=== PATIENT | male | born 1950 | race Caucasian/White ===

== ENCOUNTER 2016-04-25 05:38 | Day surgery (SDC) | payer OTHER, BC ==
[2016-04-19 15:04] VITALS: BMI 29.7
[2016-04-25 06:02] VITALS: TEMP 98.6
[2016-04-25] MEDS ORDERED: KETAMINE HCL 500 MG/10 ML VIAL ONE (06:55)
[2016-04-25 08:21] VITALS: BP 141/71; PULSE 73
[2016-04-25] MEDS ORDERED: LACTATED RINGERS SOLUTION 1,000 ML IV SCH (08:45)
== END 2016-04-25 08:50 | disposition home or self-care (01) ==
LOC: FECT 05:38
PROVIDERS: ATTEND Psychiatry & Neurology Psychiatry
PROC: GZB4ZZZ Other Electroconvulsive Therapy (ICD-10-PCS; principal; 2016-04-25 08:15)
DX: F33.2 Major depressive disorder, recurrent severe without psychotic features (principal)
CPT/HCPCS: 90870; 94760

== ENCOUNTER 2016-04-26 05:40 | Day surgery (SDC) | payer OTHER, BC ==
[2016-04-21 10:50] VITALS: BMI 29.7
[2016-04-26] MEDS ORDERED: KETAMINE HCL 500 MG/10 ML VIAL ONE (07:48)
[2016-04-26 08:54] VITALS: TEMP 98.3
[2016-04-26 09:20] VITALS: BP 142/64; PULSE 68
[2016-04-26] MEDS ORDERED: ONDANSETRON 4 MG/2 ML VIAL IVPUSH PRN (10:57)
[2016-04-26] MEDS ORDERED: LACTATED RINGERS SOLUTION 1,000 ML IV SCH (11:00)
== END 2016-04-26 09:20 | disposition home or self-care (01) ==
LOC: FECT 05:40
PROVIDERS: ATTEND Psychiatry & Neurology Psychiatry
PROC: GZB4ZZZ Other Electroconvulsive Therapy (ICD-10-PCS; principal; 2016-04-26 07:45)
DX: F33.2 Major depressive disorder, recurrent severe without psychotic features (principal)
CPT/HCPCS: 90870; 94760

== ENCOUNTER 2016-04-28 05:43 | Day surgery (SDC) | payer OTHER, BC ==
[2016-04-21 10:55] VITALS: BMI 29.7
[2016-04-28] MEDS ORDERED: ONDANSETRON 4 MG/2 ML VIAL IVPUSH PRN (06:20)
[2016-04-28] MEDS ORDERED: LACTATED RINGERS SOLUTION 1,000 ML IV SCH (06:30)
[2016-04-28] MEDS ORDERED: KETAMINE HCL 500 MG/10 ML VIAL ONE (07:19)
[2016-04-28 08:33] VITALS: TEMP 97.8
[2016-04-28 09:06] VITALS: BP 128/78; PULSE 56
== END 2016-04-28 08:50 | disposition home or self-care (01) ==
LOC: FECT 05:43
PROVIDERS: ATTEND Psychiatry & Neurology Psychiatry
PROC: GZB4ZZZ Other Electroconvulsive Therapy (ICD-10-PCS; principal; 2016-04-28 07:30)
DX: F33.2 Major depressive disorder, recurrent severe without psychotic features (principal)
CPT/HCPCS: 90870; 94760

== ENCOUNTER 2016-05-02 05:41 | Day surgery (SDC) | payer OTHER, BC ==
[2016-04-25 13:07] VITALS: BMI 29.7
[2016-05-02] MEDS ORDERED: KETAMINE HCL 500 MG/10 ML VIAL ONE (06:57)
[2016-05-02 07:35] VITALS: TEMP 97.9
[2016-05-02 09:18] VITALS: BP 126/72; PULSE 59
== END 2016-05-02 09:20 | disposition home or self-care (01) ==
LOC: FECT 05:41
PROVIDERS: ATTEND Psychiatry & Neurology Psychiatry
PROC: GZB4ZZZ Other Electroconvulsive Therapy (ICD-10-PCS; principal; 2016-05-02 07:30)
DX: F33.2 Major depressive disorder, recurrent severe without psychotic features (principal)
CPT/HCPCS: 90870; 94760

== ENCOUNTER 2016-05-03 05:40 | Day surgery (SDC) | payer OTHER, BC ==
[2016-04-26 14:49] VITALS: BMI 29.7
[2016-05-03 06:37] VITALS: TEMP 98.2
[2016-05-03] MEDS ORDERED: KETAMINE HCL 500 MG/10 ML VIAL ONE (07:27)
[2016-05-03] MEDS ORDERED: MIDAZOLAM HCL 2 MG/2 ML SINGLE DOSE VIAL IVPUSH PRN (07:52)
[2016-05-03] MEDS ORDERED: LACTATED RINGERS SOLUTION 1,000 ML IV SCH (08:00)
[2016-05-03 09:52] VITALS: BP 135/84; PULSE 61
== END 2016-05-03 09:10 | disposition home or self-care (01) ==
LOC: FECT 05:40
PROVIDERS: ATTEND Psychiatry & Neurology Psychiatry
PROC: GZB4ZZZ Other Electroconvulsive Therapy (ICD-10-PCS; principal; 2016-05-03 07:30)
DX: F33.2 Major depressive disorder, recurrent severe without psychotic features (principal)
CPT/HCPCS: 90870; 94760

== ENCOUNTER 2016-05-05 05:37 | Day surgery (SDC) | payer OTHER, BC ==
[2016-04-28 10:42] VITALS: BMI 29.7
[2016-05-05] MEDS ORDERED: KETAMINE HCL 500 MG/10 ML VIAL ONE (07:56)
[2016-05-05 09:46] VITALS: TEMP 98.4
[2016-05-05 09:49] VITALS: BP 141/82; PULSE 61
== END 2016-05-05 09:35 | disposition home or self-care (01) ==
LOC: FECT 05:37
PROVIDERS: ATTEND Psychiatry & Neurology Psychiatry
PROC: GZB4ZZZ Other Electroconvulsive Therapy (ICD-10-PCS; principal; 2016-05-05 07:15)
DX: F33.2 Major depressive disorder, recurrent severe without psychotic features (principal)
CPT/HCPCS: 90870; 94760

== ENCOUNTER 2016-05-08 05:41 | Day surgery (SDC) | payer OTHER, BC ==
[2016-05-01 07:52] VITALS: BMI 29.7
[2016-05-08] MEDS ORDERED: KETAMINE HCL 500 MG/10 ML VIAL ONE (07:35)
[2016-05-08] MEDS ORDERED: ACETAMINOPHEN 325 MG TABLET (FP) PO PRN (09:18)
[2016-05-08 09:28] VITALS: TEMP 98.5
[2016-05-08 10:04] VITALS: BP 140/82; PULSE 58
== END 2016-05-08 10:09 | disposition home or self-care (01) ==
LOC: FECT 05:41
PROVIDERS: ATTEND Psychiatry & Neurology Psychiatry
PROC: GZB4ZZZ Other Electroconvulsive Therapy (ICD-10-PCS; principal; 2016-05-08 07:15)
DX: F33.2 Major depressive disorder, recurrent severe without psychotic features (principal)
CPT/HCPCS: 90870; 94760

== ENCOUNTER 2016-05-10 05:08 | Day surgery (SDC) | payer OTHER, BC ==
[2016-05-04 07:58] VITALS: BMI 29.7
[2016-05-10] MEDS ORDERED: KETAMINE HCL 500 MG/10 ML VIAL ONE (08:23)
[2016-05-10] MEDS ORDERED: LACTATED RINGERS SOLUTION 1,000 ML IV SCH (08:45)
[2016-05-10 10:06] VITALS: TEMP 99
[2016-05-10 10:08] VITALS: BP 141/81; PULSE 55
== END 2016-05-10 10:00 | disposition home or self-care (01) ==
LOC: FECT 05:08
PROVIDERS: ATTEND Psychiatry & Neurology Psychiatry
PROC: GZB4ZZZ Other Electroconvulsive Therapy (ICD-10-PCS; principal; 2016-05-10 07:00)
DX: F33.2 Major depressive disorder, recurrent severe without psychotic features (principal)
CPT/HCPCS: 90870; 94760

== ENCOUNTER 2016-05-12 05:36 | Day surgery (SDC) | payer OTHER, BC ==
[2016-05-08 15:16] VITALS: BMI 29.7
[~2016-05-12 05:36] MED LIST: LACTATED RINGERS SOLUTION 1,000 ML IV SCH
[2016-05-12] MEDS ORDERED: KETAMINE HCL 500 MG/10 ML VIAL ONE (07:06)
[2016-05-12 10:03] VITALS: TEMP 98.1
[2016-05-12 10:12] VITALS: BP 151/73; PULSE 71
[2016-05-12] MEDS ORDERED: LACTATED RINGERS SOLUTION 1,000 ML IV SCH (12:15)
[2016-05-12] MEDS ORDERED: ONDANSETRON 4 MG/2 ML VIAL IVPUSH PRN (13:04)
== END 2016-05-12 09:40 | disposition home or self-care (01) ==
LOC: FECT 05:36
PROVIDERS: ATTEND Psychiatry & Neurology Psychiatry
PROC: GZB4ZZZ Other Electroconvulsive Therapy (ICD-10-PCS; principal; 2016-05-12 07:00)
DX: F33.2 Major depressive disorder, recurrent severe without psychotic features (principal)
CPT/HCPCS: 90870; 94760

== ENCOUNTER 2016-05-15 05:32 | Day surgery (SDC) | payer OTHER, BC ==
[2016-05-08 16:19] VITALS: BMI 29.7
[2016-05-15 06:40] VITALS: PULSE 54
--- NOTE | 2016-05-15 07:05 | HP ---
Admitting History and Physical - Admission History of Present Illness: patient is a 66 y/o male with a past medical history of bipolar disorder, hypertension, and [place] (stent x2). Patient presents for ECT, his last ECT was . Patient reports ongoing depression, he reports slowely tapering off his cymbalta as per his psychiatrist. Patient reports ongoing feelings of depression and increased sleeping throughout the day. Patient denies any suicidal or homicidal ideation, visual or auditory hallucination. patient denies any recent hospitalizations or illness. History Source: Patient Limitations to Obtaining History: No Limitations - Past Medical History Cardiovascular: Yes: HTN, [place] Psych: Yes: Anxiety, Bipolar, Depression - Smoking History Smoking history: Never smoked Have you smoked in the past 12 months: No - Alcohol/Substance Use Hx Alcohol Use: No - Social History Usual Living Arrangement: Yes: With Spouse ADL: Independent History of Recent Travel: No Home Medications - Allergies Allergies/Adverse Reactions: Allergies Allergy/AdvReac Type Severity Reaction Status Date / Time Penicillins Allergy Severe Hives Verified 05/08/16 15:28 - Home Medications Home Medications: Ambulatory Orders Aspirin [ASA -] 81 mg PO HS 04/13/16 Ca Comb No.1/D3/B6/FA/B12/Aloe [Vitamin D3-Aloe 1,000 Unit Tab] 1 each PO HS Clonazepam [Klonopin -] 0.5 mg PO QID PRN 04/13/16 Doxazosin Mesylate [Cardura Xl] 8 mg PO HS 04/13/16 Duloxetine HCl [Cymbalta -] 60 mg PO DAILY 04/13/16 Lamotrigine [Lamictal] 200 mg PO HS 04/13/16 Quetiapine Fumarate [Seroquel -] 200 mg PO HS 04/13/16 Atorvastatin Ca [Lipitor] 80 mg PO HS 04/21/16 Family Disease History - Family Disease History Family History: Unremarkable Review of Systems - Review of Systems Constitutional: reports: No Symptoms Eyes: reports: No Symptoms HENT: reports: No Symptoms Neck: reports: No Symptoms Cardiovascular: reports: No Symptoms Respiratory: reports: No Symptoms Gastrointestinal: reports: No Symptoms Genitourinary: reports: No Symptoms Musculoskeletal: reports: No Symptoms Integumentary: reports: No Symptoms Neurological: reports: No Symptoms Endocrine: reports: No Symptoms Psychiatric: reports: Depression Physical Examination Vital Signs: Vital Signs Temperature 98.5 F 05/15/16 06:38 Pulse Rate 54 L 05/15/16 06:38 Respiratory Rate 16 05/15/16 06:38 Blood Pressure 134/74 05/15/16 06:38 O2 Sat by Pulse Oximetry (%) 97 05/15/16 06:38 Constitutional: Yes: Well Nourished, No Distress, Calm Eyes: Yes: WNL, Conjunctiva Clear, EOM Intact HENT: Yes: WNL, Atraumatic, Normocephalic Neck: Yes: WNL, Supple, Trachea Midline Cardiovascular: Yes: WNL, Regular Rate and Rhythm, S1, S2 Respiratory: Yes: WNL, Regular, CTA Bilaterally Gastrointestinal: Yes: WNL, Normal Bowel Sounds, Soft ...Rectal Exam: Yes: Deferred Renal/: Yes: WNL Musculoskeletal: Yes: WNL Extremities: Yes: WNL Edema: No Peripheral Pulses WNL: Yes Peripheral Pulses: Left Radial: 4+, Right Radial: 4+, Left Doralis Pedis: 3+, Right Dorsalis Pedis: 3+, Left Femoral: 3+, Right Femoral: 3+ Integumentary: Yes: WNL Neurological: Yes: WNL, Alert, Oriented ...Motor Strength: WNL Psychiatric: Yes: WNL, Alert, Oriented Labs: reviewed 04/07 Imaging - Results EKG: Report Reviewed, Image Reviewed, Other (sinus bradycardia, no ischemic changes) Assessment/Plan pt is a 66 y/o that presents for ECT, pt has received ECT in the past and denies any adverse reaction to anesthesia, labs and ekg reviewed, no signs of fluid overload noted on exam low risk for ect informed consent and risks/benefits to be obtained by Dr Ivory
[2016-05-15] MEDS ORDERED: KETAMINE HCL 500 MG/10 ML VIAL ONE (08:10)
[2016-05-15] MEDS ORDERED: LACTATED RINGERS SOLUTION 1,000 ML IV SCH (08:15)
[2016-05-15 09:15] VITALS: BP 158/81; TEMP 98.6
== END 2016-05-15 09:05 | disposition home or self-care (01) ==
LOC: FECT 05:32
PROVIDERS: ATTEND Psychiatry & Neurology Psychiatry
PROC: GZB4ZZZ Other Electroconvulsive Therapy (ICD-10-PCS; principal; 2016-05-15 07:00)
DX: F33.2 Major depressive disorder, recurrent severe without psychotic features (principal)
CPT/HCPCS: 90870; 94760

== ENCOUNTER 2016-05-17 05:38 | Day surgery (SDC) | payer OTHER ==
[2016-05-15 08:52] VITALS: BMI 29.7
[2016-05-17 06:53] VITALS: TEMP 98
[2016-05-17] MEDS ORDERED: KETAMINE HCL 500 MG/10 ML VIAL ONE (07:24)
[2016-05-17] MEDS ORDERED: LACTATED RINGERS SOLUTION 1,000 ML IV SCH (08:00)
[2016-05-17 09:17] VITALS: BP 140/77; PULSE 58
== END 2016-05-17 09:15 | disposition home or self-care (01) ==
LOC: FECT 05:38
PROVIDERS: ATTEND Psychiatry & Neurology Psychiatry
PROC: GZB4ZZZ Other Electroconvulsive Therapy (ICD-10-PCS; principal; 2016-05-17 07:45)
DX: F33.2 Major depressive disorder, recurrent severe without psychotic features (principal)
CPT/HCPCS: 90870; 94760

== ENCOUNTER 2016-05-19 05:39 | Day surgery (SDC) | payer OTHER ==
[2016-05-16 11:32] VITALS: BMI 29.7
[2016-05-19 06:30] VITALS: TEMP 98.3
[2016-05-19] MEDS ORDERED: KETAMINE HCL 500 MG/10 ML VIAL ONE (08:08)
[2016-05-19 09:30] VITALS: BP 140/78; PULSE 60
== END 2016-05-19 09:10 | disposition home or self-care (01) ==
LOC: FECT 05:39
PROVIDERS: ATTEND Psychiatry & Neurology Psychiatry
PROC: GZB4ZZZ Other Electroconvulsive Therapy (ICD-10-PCS; principal; 2016-05-19 07:30)
DX: F33.2 Major depressive disorder, recurrent severe without psychotic features (principal)
CPT/HCPCS: 90870; 94760

== ENCOUNTER 2016-05-22 05:38 | Day surgery (SDC) | payer OTHER ==
[2016-05-16 11:38] VITALS: BMI 29.7
[2016-05-22 06:27] VITALS: TEMP 98.1
[2016-05-22] MEDS ORDERED: KETAMINE HCL 500 MG/10 ML VIAL ONE (07:13)
[2016-05-22 08:35] VITALS: BP 135/75; PULSE 58
== END 2016-05-22 09:00 | disposition home or self-care (01) ==
LOC: FECT 05:38
PROVIDERS: ATTEND Psychiatry & Neurology Psychiatry
PROC: GZB4ZZZ Other Electroconvulsive Therapy (ICD-10-PCS; principal; 2016-05-22 07:30)
DX: F33.2 Major depressive disorder, recurrent severe without psychotic features (principal)
CPT/HCPCS: 90870; 94760

== ENCOUNTER 2016-05-24 05:39 | Day surgery (SDC) | payer OTHER ==
[2016-05-16 11:43] VITALS: BMI 29.7
[2016-05-24] MEDS ORDERED: KETAMINE HCL 500 MG/10 ML VIAL ONE (06:48)
[2016-05-24] MEDS ORDERED: ACETAMINOPHEN 325 MG TABLET (FP) PO PRN (07:21)
[2016-05-24 08:38] VITALS: PULSE 62; TEMP 98
[2016-05-24 08:41] VITALS: BP 132/76
== END 2016-05-24 08:15 | disposition home or self-care (01) ==
LOC: FECT 05:39
PROVIDERS: ATTEND Psychiatry & Neurology Psychiatry
PROC: GZB4ZZZ Other Electroconvulsive Therapy (ICD-10-PCS; principal; 2016-05-24 07:30)
DX: F33.2 Major depressive disorder, recurrent severe without psychotic features (principal)
CPT/HCPCS: 90870; 94760

== ENCOUNTER 2016-05-26 05:39 | Day surgery (SDC) | payer OTHER ==
[2016-05-24 11:29] VITALS: BMI 29.7
[2016-05-26] MEDS ORDERED: KETAMINE HCL 500 MG/10 ML VIAL ONE (07:32)
[2016-05-26 08:20] VITALS: TEMP 98.2
[2016-05-26 08:39] VITALS: BP 106/68
[2016-05-26] MEDS ORDERED: ONDANSETRON 4 MG/2 ML VIAL IVPUSH PRN (09:14)
[2016-05-26] MEDS ORDERED: LACTATED RINGERS SOLUTION 1,000 ML IV SCH (09:15)
[2016-05-26 10:18] VITALS: PULSE 72
== END 2016-05-26 09:15 | disposition home or self-care (01) ==
LOC: FECT 05:39
PROVIDERS: ATTEND Psychiatry & Neurology Psychiatry
PROC: GZB4ZZZ Other Electroconvulsive Therapy (ICD-10-PCS; principal; 2016-05-26 08:00)
DX: F33.2 Major depressive disorder, recurrent severe without psychotic features (principal)
CPT/HCPCS: 90870; 94760

== ENCOUNTER 2016-05-29 05:41 | Day surgery (SDC) | payer OTHER ==
[2016-05-16 11:48] VITALS: BMI 29.7
[2016-05-29] MEDS ORDERED: KETAMINE HCL 500 MG/10 ML VIAL ONE (07:13)
[2016-05-29] MEDS ORDERED: LACTATED RINGERS SOLUTION 1,000 ML IV SCH (07:30)
[2016-05-29 08:26] VITALS: TEMP 97.8
[2016-05-29 08:50] VITALS: BP 124/70; PULSE 60
== END 2016-05-29 09:00 | disposition home or self-care (01) ==
LOC: FECT 05:41
PROVIDERS: ATTEND Psychiatry & Neurology Psychiatry
PROC: GZB4ZZZ Other Electroconvulsive Therapy (ICD-10-PCS; principal; 2016-05-29 07:15)
DX: F33.2 Major depressive disorder, recurrent severe without psychotic features (principal)
CPT/HCPCS: 90870; 94760

== ENCOUNTER 2016-05-31 05:35 | Day surgery (SDC) | payer OTHER ==
[2016-05-26 13:06] VITALS: BMI 29.7
[2016-05-31] MEDS ORDERED: KETAMINE HCL 500 MG/10 ML VIAL ONE (07:39)
[2016-05-31 08:44] VITALS: TEMP 98.9
[2016-05-31 09:32] VITALS: BP 136/78; PULSE 62
== END 2016-05-31 09:20 | disposition home or self-care (01) ==
LOC: FECT 05:35
PROVIDERS: ATTEND Psychiatry & Neurology Psychiatry
PROC: GZB4ZZZ Other Electroconvulsive Therapy (ICD-10-PCS; principal; 2016-05-31 07:30)
DX: F33.2 Major depressive disorder, recurrent severe without psychotic features (principal)
CPT/HCPCS: 90870; 94760

== ENCOUNTER 2016-06-05 05:44 | Day surgery (SDC) | payer OTHER ==
[2016-05-29 12:08] VITALS: BMI 29.7
[2016-06-05] MEDS ORDERED: ONDANSETRON 4 MG/2 ML VIAL IVPUSH PRN (06:20)
[2016-06-05] MEDS ORDERED: KETAMINE HCL 500 MG/10 ML VIAL ONE (06:41)
[2016-06-05 07:51] VITALS: TEMP 97.6
[2016-06-05 09:20] VITALS: BP 124/68; PULSE 69
== END 2016-06-05 09:21 | disposition home or self-care (01) ==
LOC: FECT 05:44
PROVIDERS: ATTEND Psychiatry & Neurology Psychiatry
PROC: GZB4ZZZ Other Electroconvulsive Therapy (ICD-10-PCS; principal; 2016-06-05 07:30)
DX: F33.2 Major depressive disorder, recurrent severe without psychotic features (principal)
CPT/HCPCS: 90870; 94760

== ENCOUNTER 2016-06-07 05:34 | Day surgery (SDC) | payer OTHER, BC ==
[2016-05-30 11:06] VITALS: BMI 29.7
[2016-06-07 08:15] VITALS: BP 115/84; PULSE 72
[2016-06-07 08:16] VITALS: TEMP 97.8
== END 2016-06-07 08:05 | disposition home or self-care (01) ==
LOC: FECT 05:34
PROVIDERS: ATTEND Psychiatry & Neurology Psychiatry
PROC: GZB4ZZZ Other Electroconvulsive Therapy (ICD-10-PCS; principal; 2016-06-07 07:00)
DX: F33.2 Major depressive disorder, recurrent severe without psychotic features (principal)
CPT/HCPCS: 90870; 94760

== ENCOUNTER 2016-06-09 05:39 | Day surgery (SDC) | payer OTHER ==
[2016-05-31 13:38] VITALS: BMI 29.7
[2016-06-09] MEDS ORDERED: ONDANSETRON 4 MG/2 ML VIAL IVPUSH PRN (06:25)
[2016-06-09] MEDS ORDERED: LACTATED RINGERS SOLUTION 1,000 ML IV SCH (06:30)
[2016-06-09 06:51] VITALS: TEMP 98
[2016-06-09 09:20] VITALS: BP 123/60; PULSE 59
== END 2016-06-09 09:20 | disposition home or self-care (01) ==
LOC: FECT 05:39
PROVIDERS: ATTEND Psychiatry & Neurology Psychiatry
PROC: GZB4ZZZ Other Electroconvulsive Therapy (ICD-10-PCS; principal; 2016-06-09 07:30)
DX: F33.2 Major depressive disorder, recurrent severe without psychotic features (principal)
CPT/HCPCS: 90870; 94760

== ENCOUNTER 2016-06-12 05:45 | Day surgery (SDC) | payer OTHER ==
[2016-06-09 13:16] VITALS: BMI 29.7
[2016-06-12 08:08] VITALS: TEMP 98.1
[2016-06-12 08:23] VITALS: BP 129/78; PULSE 62
== END 2016-06-12 08:25 | disposition home or self-care (01) ==
LOC: FECT 05:45
PROVIDERS: ATTEND Psychiatry & Neurology Psychiatry
PROC: GZB4ZZZ Other Electroconvulsive Therapy (ICD-10-PCS; principal; 2016-06-12 07:15)
DX: F33.2 Major depressive disorder, recurrent severe without psychotic features (principal)
CPT/HCPCS: 90870; 94760

== ENCOUNTER 2016-06-15 05:47 | Day surgery (SDC) | payer OTHER ==
[2016-06-13 09:00] VITALS: BMI 29.7
[2016-06-15] MEDS ORDERED: ONDANSETRON 4 MG/2 ML VIAL IVPUSH PRN (07:06)
--- NOTE | 2016-06-15 07:14 | HP ---
Admitting History and Physical - Admission History of Present Illness: patient is a 66 y/o male with a past medical history of bipolar disorder, [place] ( stent x 2), and hypertension that presents for ECT. His last ECT was 06/12/16. He reports feeling well, he reports minimal improvement of depressive symptoms since starting ECT. he reports as per his psychiatrist tapering off his cymbalta starting efexor and lithium. he report tolerating the medications well. He does report suicidal thoughts but denies any plan. He denies any visual or auditory hallucinations. - Past Medical History Cardiovascular: Yes: HTN, [place] Psych: Yes: Anxiety, Bipolar, Depression - Smoking History Smoking history: Never smoked Have you smoked in the past 12 months: No - Alcohol/Substance Use Hx Alcohol Use: No - Social History ADL: Independent History of Recent Travel: No Home Medications - Allergies Allergies/Adverse Reactions: Allergies Allergy/AdvReac Type Severity Reaction Status Date / Time Penicillins Allergy Severe Hives Verified 06/07/16 06:19 - Home Medications Home Medications: Ambulatory Orders Aspirin [ASA -] 81 mg PO HS 04/13/16 Clonazepam [Klonopin -] 0.5 mg PO TID 04/13/16 Doxazosin Mesylate [Cardura Xl] 8 mg PO HS 04/13/16 Lamotrigine [Lamictal] 200 mg PO HS 04/13/16 Quetiapine Fumarate [Seroquel -] 200 mg PO HS 04/13/16 Atorvastatin Ca [Lipitor] 80 mg PO HS 04/21/16 Venlafaxine HCl ER [Effexor Xr -] 375 mg PO DAILY 05/22/16 Pramipexole Di-HCl [Mirapex] 0.125 mg PO BID 06/09/16 [place] Carbonate [Eskalith -] 300 mg PO BID 06/15/16 Family Disease History - Family Disease History Family History: Unremarkable Review of Systems - Review of Systems Constitutional: reports: No Symptoms Eyes: reports: No Symptoms HENT: reports: No Symptoms Neck: reports: No Symptoms Cardiovascular: reports: No Symptoms Respiratory: reports: No Symptoms Gastrointestinal: reports: No Symptoms Genitourinary: reports: No Symptoms Breasts: reports: No Symptoms Reported Musculoskeletal: reports: No Symptoms Integumentary: reports: No Symptoms Neurological: reports: No Symptoms Endocrine: reports: No Symptoms Hematology/Lymphatic: reports: No Symptoms Psychiatric: reports: Depression Physical Examination Vital Signs: Vital Signs Temperature 98.2 F 06/15/16 06:14 Pulse Rate 95 H 06/15/16 06:14 Respiratory Rate 17 06/15/16 06:14 Blood Pressure 112/71 06/15/16 06:14 O2 Sat by Pulse Oximetry (%) 95 06/15/16 06:14 Constitutional: Yes: Well Nourished, No Distress, Calm Eyes: Yes: WNL, Conjunctiva Clear, EOM Intact HENT: Yes: WNL, Atraumatic, Normocephalic Neck: Yes: WNL, Supple, Trachea Midline Cardiovascular: Yes: WNL, Regular Rate and Rhythm, S1, S2 Respiratory: Yes: WNL, Regular, CTA Bilaterally Gastrointestinal: Yes: WNL, Normal Bowel Sounds, Soft ...Rectal Exam: Yes: Deferred Renal/: Yes: WNL Breast(s): Yes: WNL Musculoskeletal: Yes: WNL Extremities: Yes: WNL Edema: No Integumentary: Yes: WNL Neurological: Yes: WNL, Alert, Oriented ...Motor Strength: WNL Psychiatric: Yes: WNL, Alert, Oriented Labs: reviewed 04/14/16 Imaging - Results EKG: Report Reviewed, Image Reviewed, Other (nsr, no ischemic changes) Assessment/Plan patient is a 66 y/o male that presents for ECT, he has received anesthesia in the past and denies any adverse reaction to anesthesia all labs and ekg reviewed pt is low risk for ect informed consent and risks/benefits to be obtained by Dr Ivory
[2016-06-15 08:51] VITALS: TEMP 98.8
[2016-06-15 09:39] VITALS: BP 131/61; PULSE 66
== END 2016-06-15 09:15 | disposition home or self-care (01) ==
LOC: FECT 05:47
PROVIDERS: ATTEND Psychiatry & Neurology Psychiatry
PROC: GZB4ZZZ Other Electroconvulsive Therapy (ICD-10-PCS; principal; 2016-06-15 07:45)
DX: F33.2 Major depressive disorder, recurrent severe without psychotic features (principal)
CPT/HCPCS: 90870; 94760

== ENCOUNTER 2016-06-16 05:38 | Day surgery (SDC) | payer OTHER ==
[2016-06-13 09:04] VITALS: BMI 29.7
[2016-06-16 07:45] VITALS: TEMP 98.3
[2016-06-16 08:11] VITALS: BP 138/66; PULSE 58
== END 2016-06-16 08:13 | disposition home or self-care (01) ==
LOC: FECT 05:38
PROVIDERS: ATTEND Psychiatry & Neurology Psychiatry
PROC: GZB4ZZZ Other Electroconvulsive Therapy (ICD-10-PCS; principal; 2016-06-16 07:15)
DX: F33.2 Major depressive disorder, recurrent severe without psychotic features (principal)
CPT/HCPCS: 90870; 94760

== ENCOUNTER 2016-06-19 05:34 | Day surgery (SDC) | payer OTHER ==
[2016-05-26 13:09] VITALS: BMI 29.7
[~2016-06-19 05:34] MED LIST changes: +KETAMINE HCL 500 MG/10 ML VIAL ONE; -LACTATED RINGERS SOLUTION 1,000 ML IV SCH
[2016-06-19] MEDS ORDERED: KETAMINE HCL 500 MG/10 ML VIAL ONE ×2 (06:52→07:11)
[2016-06-19] MEDS ORDERED: ONDANSETRON 4 MG/2 ML VIAL IVPUSH PRN ×2 (07:04→09:02)
[2016-06-19 07:58] VITALS: TEMP 98.2
[2016-06-19] MEDS ORDERED: LACTATED RINGERS SOLUTION 1,000 ML IV SCH (08:00)
[2016-06-19 08:31] VITALS: BP 120/66; PULSE 56
[2016-06-19] MEDS ORDERED: PROMETHAZINE HCL 25 MG/1 ML VIAL IVPUSH PRN (09:03)
== END 2016-06-19 08:34 | disposition home or self-care (01) ==
LOC: FECT 05:34
PROVIDERS: ATTEND Psychiatry & Neurology Psychiatry
PROC: GZB4ZZZ Other Electroconvulsive Therapy (ICD-10-PCS; principal; 2016-06-19 07:45)
DX: F33.2 Major depressive disorder, recurrent severe without psychotic features (principal)
CPT/HCPCS: 90870; 94760

== ENCOUNTER 2016-06-21 05:41 | Day surgery (SDC) | payer OTHER ==
[2016-06-19 15:12] VITALS: BMI 29.7
[2016-06-21] MEDS ORDERED: KETAMINE HCL 500 MG/10 ML VIAL ONE (06:58)
[2016-06-21] MEDS ORDERED: ONDANSETRON 4 MG/2 ML VIAL IVPUSH PRN (06:59)
[2016-06-21] MEDS ORDERED: LACTATED RINGERS SOLUTION 1,000 ML IV SCH (07:00)
[2016-06-21 08:27] VITALS: BP 125/75; PULSE 78; TEMP 98.2
== END 2016-06-21 08:30 | disposition home or self-care (01) ==
LOC: FECT 05:41
PROVIDERS: ATTEND Psychiatry & Neurology Psychiatry
PROC: GZB4ZZZ Other Electroconvulsive Therapy (ICD-10-PCS; principal; 2016-06-21 07:30)
DX: F33.2 Major depressive disorder, recurrent severe without psychotic features (principal)
CPT/HCPCS: 90870; 94760

== ENCOUNTER 2016-06-23 05:37 | Day surgery (SDC) | payer OTHER ==
[2016-06-19 16:49] VITALS: BMI 29.7
[2016-06-23] MEDS ORDERED: KETAMINE HCL 500 MG/10 ML VIAL ONE (07:02)
[2016-06-23 08:15] VITALS: TEMP 98
[2016-06-23 08:22] VITALS: BP 124/73; PULSE 61
[2016-06-23] MEDS ORDERED: ONDANSETRON 4 MG/2 ML VIAL IVPUSH PRN (11:17)
[2016-06-23] MEDS ORDERED: LACTATED RINGERS SOLUTION 1,000 ML IV SCH (11:30)
== END 2016-06-23 08:23 | disposition home or self-care (01) ==
LOC: FECT 05:37
PROVIDERS: ATTEND Psychiatry & Neurology Psychiatry
PROC: GZB4ZZZ Other Electroconvulsive Therapy (ICD-10-PCS; principal; 2016-06-23 07:15)
DX: F33.2 Major depressive disorder, recurrent severe without psychotic features (principal)
CPT/HCPCS: 90870; 94760

== ENCOUNTER 2016-06-26 05:35 | Day surgery (SDC) | payer OTHER ==
[2016-06-23 08:27] VITALS: BMI 29.7
[2016-06-26] MEDS ORDERED: KETAMINE HCL 500 MG/10 ML VIAL ONE (07:04)
[2016-06-26 08:22] VITALS: PULSE 56; TEMP 98.2
[2016-06-26 08:24] VITALS: BP 138/76
== END 2016-06-26 08:26 | disposition home or self-care (01) ==
LOC: FECT 05:35
PROVIDERS: ATTEND Psychiatry & Neurology Psychiatry
PROC: GZB4ZZZ Other Electroconvulsive Therapy (ICD-10-PCS; principal; 2016-06-26 07:15)
DX: F33.2 Major depressive disorder, recurrent severe without psychotic features (principal)
CPT/HCPCS: 90870; 94760

== ENCOUNTER 2016-07-06 05:40 | Day surgery (SDC) | payer OTHER, BC ==
[2016-06-29 09:49] VITALS: BMI 29.7
[2016-07-06] MEDS ORDERED: KETAMINE HCL 500 MG/10 ML VIAL ONE (07:03)
[2016-07-06 07:49] VITALS: TEMP 97.8
[2016-07-06 08:42] VITALS: BP 116/72; PULSE 66
[2016-07-06] MEDS ORDERED: ONDANSETRON 4 MG/2 ML VIAL IVPUSH PRN (08:48)
== END 2016-07-06 08:43 | disposition home or self-care (01) ==
LOC: FECT 05:40
PROVIDERS: ATTEND Psychiatry & Neurology Psychiatry
PROC: GZB4ZZZ Other Electroconvulsive Therapy (ICD-10-PCS; principal; 2016-07-06 07:30)
DX: F33.2 Major depressive disorder, recurrent severe without psychotic features (principal)
CPT/HCPCS: 90870; 94760

== ENCOUNTER 2016-07-11 05:51 | Day surgery (SDC) | payer OTHER, BC ==
[2016-07-06 15:42] VITALS: BMI 29.7
[2016-07-11] MEDS ORDERED: KETAMINE HCL 500 MG/10 ML VIAL ONE (07:10)
[2016-07-11 08:04] VITALS: TEMP 98.8
[2016-07-11 08:16] VITALS: PULSE 53
[2016-07-11 08:20] VITALS: BP 120/59
[2016-07-11] MEDS ORDERED: LACTATED RINGERS SOLUTION 1,000 ML IV SCH (09:00)
[2016-07-11] MEDS ORDERED: ONDANSETRON 4 MG/2 ML VIAL IVPUSH PRN (09:00)
== END 2016-07-11 09:14 | disposition home or self-care (01) ==
LOC: FECT 05:51
PROVIDERS: ATTEND Psychiatry & Neurology Psychiatry
PROC: GZB4ZZZ Other Electroconvulsive Therapy (ICD-10-PCS; principal; 2016-07-11 07:45)
DX: F33.2 Major depressive disorder, recurrent severe without psychotic features (principal)
CPT/HCPCS: 90870; 94760

== ENCOUNTER 2016-07-17 05:37 | Day surgery (SDC) | payer OTHER, BC ==
[2016-07-14 08:48] VITALS: BMI 29.7
[2016-07-17 06:17] VITALS: TEMP 98.7
[2016-07-17] MEDS ORDERED: ONDANSETRON 4 MG/2 ML VIAL IVPUSH PRN (06:43)
[2016-07-17] MEDS ORDERED: KETAMINE HCL 500 MG/10 ML VIAL ONE (06:50)
[2016-07-17 08:25] VITALS: BP 129/74; PULSE 55
== END 2016-07-17 09:15 | disposition home or self-care (01) ==
LOC: FECT 05:37
PROVIDERS: ATTEND Psychiatry & Neurology Psychiatry
PROC: GZB4ZZZ Other Electroconvulsive Therapy (ICD-10-PCS; principal; 2016-07-17 07:15)
DX: F33.2 Major depressive disorder, recurrent severe without psychotic features (principal)
CPT/HCPCS: 90870; 94760

== ENCOUNTER 2016-07-25 05:42 | Day surgery (SDC) | payer OTHER, BC ==
[2016-07-24 13:08] VITALS: BMI 29.7
--- NOTE | 2016-07-25 07:01 | HP ---
Admitting History and Physical - Admission History of Present Illness: patient is a 66 y/o male with a past medical history of [place] (stent x2), hypertension, and bipolar disorder. Patient presents for ECT, his last ECT was 07/17/16. He reports feeling well. Patient reports an improvement in depression since starting ECT. patient denies any changes in medication. Patient denies any recent illness or hospitalizations. Patient denies any cough , colds or fevers. History Source: Patient Limitations to Obtaining History: No Limitations - Past Medical History Cardiovascular: Yes: HTN, [place] Psych: Yes: Anxiety, Bipolar, Depression - Smoking History Smoking history: Never smoked Have you smoked in the past 12 months: No - Alcohol/Substance Use Hx Alcohol Use: No - Social History ADL: Independent History of Recent Travel: No Home Medications - Allergies Allergies/Adverse Reactions: Allergies Allergy/AdvReac Type Severity Reaction Status Date / Time Penicillins Allergy Severe Hives Verified 07/11/16 06:16 - Home Medications Home Medications: Ambulatory Orders Aspirin [ASA -] 81 mg PO HS 04/13/16 Clonazepam [Klonopin -] 0.5 mg PO TID PRN 04/13/16 Doxazosin Mesylate [Cardura Xl] 8 mg PO HS 04/13/16 Lamotrigine [Lamictal] 200 mg PO HS 04/13/16 Quetiapine Fumarate [Seroquel -] 200 mg PO HS 04/13/16 Atorvastatin Ca [Lipitor] 80 mg PO HS 04/21/16 Venlafaxine HCl ER [Effexor Xr -] 375 mg PO DAILY 05/22/16 Pramipexole Di-HCl [Mirapex] 0.125 mg PO BID 06/09/16 [place] Carbonate [Eskalith -] 300 mg PO TID 06/15/16 Family Disease History - Family Disease History Family History: Unremarkable Review of Systems - Review of Systems Constitutional: reports: No Symptoms Eyes: reports: No Symptoms HENT: reports: No Symptoms Neck: reports: No Symptoms Cardiovascular: reports: No Symptoms Respiratory: reports: No Symptoms Gastrointestinal: reports: No Symptoms Genitourinary: reports: No Symptoms Musculoskeletal: reports: No Symptoms Integumentary: reports: No Symptoms Neurological: reports: No Symptoms Endocrine: reports: No Symptoms Hematology/Lymphatic: reports: No Symptoms Psychiatric: reports: No Symptoms Physical Examination Vital Signs: Vital Signs Temperature 97.8 F 07/25/16 06:04 Pulse Rate 54 L 07/25/16 06:04 Respiratory Rate 18 07/25/16 06:04 Blood Pressure 124/68 07/25/16 06:04 O2 Sat by Pulse Oximetry (%) 98 07/25/16 06:04 Constitutional: Yes: Well Nourished, No Distress, Calm Eyes: Yes: WNL, Conjunctiva Clear, EOM Intact HENT: Yes: WNL, Atraumatic, Normocephalic Neck: Yes: WNL, Supple, Trachea Midline Cardiovascular: Yes: WNL, Regular Rate and Rhythm, S1, S2 Respiratory: Yes: WNL, Regular, CTA Bilaterally Gastrointestinal: Yes: WNL, Normal Bowel Sounds, Soft ...Rectal Exam: Yes: Deferred Renal/: Yes: WNL Breast(s): Yes: WNL Musculoskeletal: Yes: WNL Extremities: Yes: WNL Edema: No Peripheral Pulses WNL: Yes Peripheral Pulses: Left Radial: 4+, Right Radial: 4+, Left Doralis Pedis: 3+, Right Dorsalis Pedis: 3+, Left Femoral: 3+, Right Femoral: 3+ Integumentary: Yes: WNL Neurological: Yes: WNL, Alert, Oriented ...Motor Strength: WNL Psychiatric: Yes: WNL, Alert, Oriented Labs: reviewed 04/07 Imaging - Results EKG: Image Reviewed, Other (nsr old anterior infarcth) Assessment/Plan pt is a 66 y/o male that present for ECT, he has received in the past and denies any adverse reaction to anesthesia labs and ekg reviewed pt is low risk for procedure informed consent, risks/benefits to be obtained by Dr Ivory
[2016-07-25] MEDS ORDERED: KETAMINE HCL 500 MG/10 ML VIAL ONE (07:11)
[2016-07-25 08:15] VITALS: PULSE 54; TEMP 98.1
[2016-07-25] MEDS ORDERED: LACTATED RINGERS SOLUTION 1,000 ML IV SCH (08:15)
[2016-07-25 08:47] VITALS: BP 141/77
== END 2016-07-25 09:00 | disposition home or self-care (01) ==
LOC: FECT 05:42
PROVIDERS: ATTEND Psychiatry & Neurology Psychiatry
PROC: GZB4ZZZ Other Electroconvulsive Therapy (ICD-10-PCS; principal; 2016-07-25 07:30)
DX: F33.2 Major depressive disorder, recurrent severe without psychotic features (principal)
CPT/HCPCS: 90870; 94760

== ENCOUNTER 2016-08-07 05:41 | Day surgery (SDC) | payer OTHER, BC ==
[2016-08-01 10:39] VITALS: BMI 29.7
[2016-08-07] MEDS ORDERED: KETAMINE HCL 500 MG/10 ML VIAL ONE (06:58)
[2016-08-07] MEDS ORDERED: PROMETHAZINE HCL 25 MG/1 ML VIAL IVPUSH PRN (07:22)
[2016-08-07] MEDS ORDERED: ONDANSETRON 4 MG/2 ML VIAL IVPUSH PRN (07:22)
[2016-08-07] MEDS ORDERED: LACTATED RINGERS SOLUTION 1,000 ML IV SCH (07:30)
[2016-08-07 07:47] VITALS: TEMP 98.2
[2016-08-07 10:00] VITALS: BP 143/77; PULSE 56
== END 2016-08-07 08:10 | disposition home or self-care (01) ==
LOC: FECT 05:41
PROVIDERS: ATTEND Psychiatry & Neurology Psychiatry
PROC: GZB4ZZZ Other Electroconvulsive Therapy (ICD-10-PCS; principal; 2016-08-07 08:15)
DX: F33.2 Major depressive disorder, recurrent severe without psychotic features (principal)
CPT/HCPCS: 90870; 94760

== ENCOUNTER 2016-08-16 05:25 | Day surgery (SDC) | payer OTHER, BC ==
[2016-08-10 13:27] VITALS: BMI 29.7
[2016-08-16] MEDS ORDERED: KETAMINE HCL 500 MG/10 ML VIAL ONE (06:58)
[2016-08-16 08:20] VITALS: BP 137/67; PULSE 77; TEMP 98
== END 2016-08-16 08:15 | disposition home or self-care (01) ==
LOC: FECT 05:25
PROVIDERS: ATTEND Psychiatry & Neurology Psychiatry
PROC: GZB4ZZZ Other Electroconvulsive Therapy (ICD-10-PCS; principal; 2016-08-16 07:15)
DX: F33.2 Major depressive disorder, recurrent severe without psychotic features (principal)
CPT/HCPCS: 90870; 94760

== ENCOUNTER 2016-08-30 05:21 | Day surgery (SDC) | payer OTHER, BC ==
--- NOTE | 2016-08-30 06:56 | HP ---
Admitting History and Physical - Admission History of Present Illness: patient is a 66 y/o male with a past medical history of hypertension, [place] (stent x 2), bipolar disorder, and hyperlipidemia. Patient presents for ect his last ect was 08/16/16. patient reports feeling well, reports an improvement in depressive symptoms since starting ect. He denies any changes to his medications and reports compliance with prescribed medications. Patient denies any suicidal or homicidal ideation, visual or auditory hallucinations. Patient denies any recent hospitalizations or illnesses. History Source: Patient Limitations to Obtaining History: No Limitations - Past Medical History Cardiovascular: Yes: HTN, [place] Psych: Yes: Anxiety, Bipolar, Depression - Smoking History Smoking history: Never smoked Have you smoked in the past 12 months: No - Alcohol/Substance Use Hx Alcohol Use: No - Social History ADL: Independent History of Recent Travel: No Home Medications - Allergies Allergies/Adverse Reactions: Allergies Allergy/AdvReac Type Severity Reaction Status Date / Time Penicillins Allergy Severe Hives Verified 07/11/16 06:16 - Home Medications Home Medications: Ambulatory Orders Aspirin [ASA -] 81 mg PO HS 04/13/16 Clonazepam [Klonopin -] 0.5 mg PO TID PRN 04/13/16 Doxazosin Mesylate [Cardura Xl] 8 mg PO HS 04/13/16 Lamotrigine [Lamictal] 200 mg PO HS 04/13/16 Quetiapine Fumarate [Seroquel -] 200 mg PO HS 04/13/16 Atorvastatin Ca [Lipitor] 80 mg PO HS 04/21/16 Venlafaxine HCl ER [Effexor Xr -] 375 mg PO DAILY 05/22/16 [place] Carbonate [Eskalith -] 750 mg PO HS 06/15/16 Family Disease History - Family Disease History Family History: Unremarkable Review of Systems - Review of Systems Constitutional: reports: No Symptoms Eyes: reports: No Symptoms HENT: reports: No Symptoms Neck: reports: No Symptoms Cardiovascular: reports: No Symptoms Respiratory: reports: No Symptoms Gastrointestinal: reports: No Symptoms Genitourinary: reports: No Symptoms Breasts: reports: No Symptoms Reported Musculoskeletal: reports: No Symptoms Integumentary: reports: No Symptoms Neurological: reports: No Symptoms Endocrine: reports: No Symptoms Hematology/Lymphatic: reports: No Symptoms Psychiatric: reports: No Symptoms Physical Examination Vital Signs: Vital Signs Temperature 98.0 F 08/30/16 06:30 Pulse Rate 54 L 08/30/16 06:30 Respiratory Rate 18 08/30/16 06:30 Blood Pressure 120/66 08/30/16 06:30 O2 Sat by Pulse Oximetry (%) 98 08/30/16 06:30 Constitutional: Yes: Well Nourished, No Distress, Calm Eyes: Yes: WNL, Conjunctiva Clear, EOM Intact HENT: Yes: WNL, Atraumatic, Normocephalic Neck: Yes: WNL, Supple, Trachea Midline Cardiovascular: Yes: WNL, Regular Rate and Rhythm, S1, S2 Respiratory: Yes: WNL, Regular, CTA Bilaterally Gastrointestinal: Yes: WNL, Normal Bowel Sounds, Soft ...Rectal Exam: Yes: Deferred Renal/: Yes: WNL Musculoskeletal: Yes: WNL Extremities: Yes: WNL Edema: No Peripheral Pulses WNL: Yes Peripheral Pulses: Left Radial: 4+, Right Radial: 4+, Left Doralis Pedis: 3+, Right Dorsalis Pedis: 3+, Left Femoral: 3+, Right Femoral: 3+ Integumentary: Yes: WNL Neurological: Yes: WNL, Alert, Oriented ...Motor Strength: WNL Psychiatric: Yes: WNL, Alert, Oriented Labs: reviewed 04/22/16 Imaging - Results EKG: Image Reviewed, Other (nsr) Assessment/Plan pt is a 66 y/o male that presents for ect, pt has received ect in the past and denies any adverse reaction to anesthesia. labs and ekg reviewed. no signs of fluid overload noted on exam. pt is low risk for procedure informed consent, risks/benefits to be obtained by Dr Ivory
[2016-08-30] MEDS ORDERED: KETAMINE HCL 500 MG/10 ML VIAL ONE (07:57)
[2016-08-30 09:07] VITALS: TEMP 98.4
[2016-08-30 09:13] VITALS: BP 144/74; PULSE 60
[2016-08-30] MEDS ORDERED: LACTATED RINGERS SOLUTION 1,000 ML IV SCH (09:45)
[2016-08-30] MEDS ORDERED: ONDANSETRON 4 MG/2 ML VIAL IVPUSH PRN (10:09)
== END 2016-08-30 09:15 | disposition home or self-care (01) ==
LOC: FECT 05:21
PROVIDERS: ATTEND Psychiatry & Neurology Psychiatry
PROC: GZB4ZZZ Other Electroconvulsive Therapy (ICD-10-PCS; principal; 2016-08-30 07:30)
DX: F33.2 Major depressive disorder, recurrent severe without psychotic features (principal)
CPT/HCPCS: 90870; 94760

== ENCOUNTER 2016-09-13 05:35 | Day surgery (SDC) | payer OTHER, BC ==
[2016-09-07 12:26] VITALS: BMI 29.7
[2016-09-13] MEDS ORDERED: KETAMINE HCL 500 MG/10 ML VIAL ONE (07:20)
[2016-09-13] MEDS ORDERED: ACETAMINOPHEN 325 MG TABLET (FP) PO PRN (07:27)
[2016-09-13 08:35] VITALS: BP 127/79; PULSE 53; TEMP 97.7
[2016-09-13] MEDS ORDERED: ONDANSETRON 4 MG/2 ML VIAL IVPUSH PRN (08:56)
== END 2016-09-13 08:57 | disposition home or self-care (01) ==
LOC: FECT 05:35
PROVIDERS: ATTEND Psychiatry & Neurology Psychiatry
PROC: GZB4ZZZ Other Electroconvulsive Therapy (ICD-10-PCS; principal; 2016-09-13 07:00)
DX: F33.2 Major depressive disorder, recurrent severe without psychotic features (principal)
CPT/HCPCS: 90870; 94760

== ENCOUNTER 2016-09-28 05:37 | Day surgery (SDC) | payer OTHER, BC ==
[2016-09-19 12:47] VITALS: BMI 29.7
[2016-09-28 06:10] VITALS: TEMP 98
[2016-09-28] MEDS ORDERED: KETAMINE HCL 500 MG/10 ML VIAL ONE (06:59)
[2016-09-28 08:25] VITALS: BP 130/70; PULSE 60
[2016-09-28] MEDS ORDERED: ONDANSETRON 4 MG/2 ML VIAL IVPUSH PRN (08:41)
[2016-09-28] MEDS ORDERED: LACTATED RINGERS SOLUTION 1,000 ML IV SCH (08:45)
== END 2016-09-28 08:25 | disposition home or self-care (01) ==
LOC: FECT 05:37
PROVIDERS: ATTEND Psychiatry & Neurology Psychiatry
PROC: GZB4ZZZ Other Electroconvulsive Therapy (ICD-10-PCS; principal; 2016-09-28 07:00)
DX: F33.2 Major depressive disorder, recurrent severe without psychotic features (principal)
CPT/HCPCS: 90870; 94760

== ENCOUNTER 2016-10-12 05:38 | Day surgery (SDC) | payer OTHER, BC ==
--- NOTE | 2016-10-12 06:52 | HP ---
Admitting History and Physical - Primary Care Physician PCP: Dolores Ayala - Admission History of Present Illness: patient is a 66 y/o male with a past medical history of [place] (stent x 2), hyperlipidemia, and bipolar disorder. Patient presents for ect, his last ect was 09/28/16. Patient reports feeling well, he denies any changes in medications. He does reports compliance with prescribed medications. Patient denies any recent illnesses or hospitalizations. He does report an improvement in depressive symptoms since starting ect. He denies any suicidal or homicidal ideation, patient denies any visual or auditory hallucinations. History Source: Patient Limitations to Obtaining History: No Limitations - Past Medical History Cardiovascular: Yes: HTN, [place] Psych: Yes: Anxiety, Bipolar, Depression - Smoking History Smoking history: Never smoked Have you smoked in the past 12 months: No - Alcohol/Substance Use Hx Alcohol Use: No - Social History Usual Living Arrangement: Yes: With Spouse ADL: Independent History of Recent Travel: No Home Medications - Allergies Allergies/Adverse Reactions: Allergies Allergy/AdvReac Type Severity Reaction Status Date / Time Penicillins Allergy Severe Hives Verified 07/11/16 06:16 - Home Medications Home Medications: Ambulatory Orders Aspirin [ASA -] 81 mg PO HS 04/13/16 Clonazepam [Klonopin -] 0.5 mg PO TID PRN 04/13/16 Doxazosin Mesylate [Cardura Xl] 8 mg PO HS 04/13/16 Lamotrigine [Lamictal] 200 mg PO HS 04/13/16 Quetiapine Fumarate [Seroquel -] 200 mg PO HS 04/13/16 Atorvastatin Ca [Lipitor] 80 mg PO HS 04/21/16 Venlafaxine HCl ER [Effexor Xr -] 375 mg PO DAILY 05/22/16 [place] Carbonate [Eskalith -] 750 mg PO HS 06/15/16 Family Disease History - Family Disease History Family History: Unremarkable Review of Systems - Review of Systems Constitutional: reports: No Symptoms Eyes: reports: No Symptoms HENT: reports: No Symptoms Neck: reports: No Symptoms Cardiovascular: reports: No Symptoms Respiratory: reports: No Symptoms Gastrointestinal: reports: No Symptoms Genitourinary: reports: No Symptoms Musculoskeletal: reports: No Symptoms Integumentary: reports: No Symptoms Neurological: reports: No Symptoms Endocrine: reports: No Symptoms Hematology/Lymphatic: reports: No Symptoms Psychiatric: reports: No Symptoms Physical Examination Constitutional: Yes: Well Nourished, No Distress, Calm Eyes: Yes: WNL, Conjunctiva Clear, EOM Intact HENT: Yes: WNL, Atraumatic, Normocephalic Neck: Yes: WNL, Supple, Trachea Midline Cardiovascular: Yes: WNL, Regular Rate and Rhythm, S1, S2 Respiratory: Yes: WNL, Regular, CTA Bilaterally Gastrointestinal: Yes: WNL, Normal Bowel Sounds, Soft ...Rectal Exam: Yes: Deferred Renal/: Yes: WNL Musculoskeletal: Yes: WNL Extremities: Yes: WNL Edema: No Peripheral Pulses WNL: Yes Peripheral Pulses: Left Radial: 4+, Right Radial: 4+, Left Doralis Pedis: 3+, Right Dorsalis Pedis: 3+, Left Femoral: 3+, Right Femoral: 3+ Integumentary: Yes: WNL Neurological: Yes: WNL, Alert, Oriented ...Motor Strength: WNL Psychiatric: Yes: WNL, Alert, Oriented Labs: reviewed 07/07 Imaging - Results EKG: Image Reviewed, Other (nsr, anterior infarct noted, unchanged from prior ekg.) Assessment/Plan pt is a 66 y/o male that presents for ect, he has received ect in the past and denies any adverse reaction to anesthesia. labs and ekg reviewed pt is low risk for procedure. informed consent, risks/benefits to be obtained by Dr Ivory
[2016-10-12 06:57] VITALS: BMI 30.5
[2016-10-12] MEDS ORDERED: KETAMINE HCL 500 MG/10 ML VIAL ONE (07:39)
[2016-10-12 09:00] VITALS: TEMP 98
[2016-10-12 09:17] VITALS: BP 133/66; PULSE 60
--- NOTE | 2016-10-13 18:19 | EKG ---
Test Reason : Blood Pressure : / mmHG Vent. Rate : 054 BPM Atrial Rate : 054 BPM P-R Int : 174 ms QRS Dur : 104 ms QT Int : 428 ms P-R-T Axes : 013 -17 044 degrees QTc Int : 405 ms SINUS BRADYCARDIA MINIMAL VOLTAGE CRITERIA FOR LVH, MAY BE NORMAL VARIANT ANTEROSEPTAL INFARCT , AGE UNDETERMINED NO PREVIOUS ECGS AVAILABLE Confirmed by MD BEATTY MARJORY ([id number]) on 10/13/2016 6:18:25 PM Referred By: Jayson Ivory Confirmed By:MARIE BEATTY MD
== END 2016-10-12 09:05 | disposition home or self-care (01) ==
LOC: FECT 05:38
PROVIDERS: ATTEND Psychiatry & Neurology Psychiatry
PROC: GZB4ZZZ Other Electroconvulsive Therapy (ICD-10-PCS; principal; 2016-10-12 07:15)
DX: F33.2 Major depressive disorder, recurrent severe without psychotic features (principal)
CPT/HCPCS: 90870; 93005; 94760

== ENCOUNTER 2016-10-26 05:47 | Day surgery (SDC) | payer OTHER, BC ==
[2016-10-12 11:07] VITALS: BMI 30.5
[2016-10-26] MEDS ORDERED: KETAMINE HCL 500 MG/10 ML VIAL ONE (07:13)
[2016-10-26 08:09] VITALS: TEMP 98
[2016-10-26] MEDS ORDERED: ONDANSETRON 4 MG/2 ML VIAL IVPUSH PRN (08:10)
[2016-10-26] MEDS ORDERED: LACTATED RINGERS SOLUTION 1,000 ML IV SCH (08:15)
[2016-10-26 08:36] VITALS: BP 140/75; PULSE 61
== END 2016-10-26 08:25 | disposition home or self-care (01) ==
LOC: FASU 05:47
PROVIDERS: ATTEND Psychiatry & Neurology Psychiatry
PROC: GZB4ZZZ Other Electroconvulsive Therapy (ICD-10-PCS; principal; 2016-10-26 07:15)
DX: F33.2 Major depressive disorder, recurrent severe without psychotic features (principal)
CPT/HCPCS: 90870; 94760

== ENCOUNTER 2016-11-07 05:36 | Day surgery (SDC) | payer OTHER, BC ==
[2016-11-07 06:27] VITALS: TEMP 98.1
[2016-11-07] MEDS ORDERED: KETAMINE HCL 500 MG/10 ML VIAL ONE (06:51)
[2016-11-07 08:17] VITALS: BP 130/77; PULSE 60
== END 2016-11-07 08:10 | disposition home or self-care (01) ==
LOC: FECT 05:36
PROVIDERS: ATTEND Psychiatry & Neurology Psychiatry
PROC: GZB4ZZZ Other Electroconvulsive Therapy (ICD-10-PCS; principal; 2016-11-07 07:30)
DX: F33.2 Major depressive disorder, recurrent severe without psychotic features (principal)
CPT/HCPCS: 90870; 94760

== ENCOUNTER 2016-11-23 05:40 | Day surgery (SDC) | payer OTHER, BC ==
[2016-11-08 10:50] VITALS: BMI 29.7
--- NOTE | 2016-11-23 07:01 | HP ---
Admitting History and Physical - Admission History of Present Illness: patient is a 66 y/o male with a past medical history of bipolar disorder, hyperlipidemia, and [place] stent x 2. patient presents for ect his last ect was . patient reports feeling well, he reports an improvement in his mood since starting ect. He denies any suicidal or homicdal ideation, he denies any visual or auditory hallucinations. He reports starting rexulti this month and reports no adverse reaction with medication. History Source: Patient Limitations to Obtaining History: No Limitations - Past Medical History Cardiovascular: Yes: HTN, [place] Psych: Yes: Anxiety, Bipolar, Depression - Smoking History Smoking history: Never smoked Have you smoked in the past 12 months: No - Alcohol/Substance Use Hx Alcohol Use: No - Social History Usual Living Arrangement: Yes: With Spouse ADL: Independent History of Recent Travel: No Home Medications - Allergies Allergies/Adverse Reactions: Allergies Allergy/AdvReac Type Severity Reaction Status Date / Time Penicillins Allergy Severe Hives Verified 10/26/16 06:18 - Home Medications Home Medications: Ambulatory Orders Aspirin [ASA -] 81 mg PO HS 04/13/16 Clonazepam [Klonopin -] 0.5 mg PO TID PRN 04/13/16 Doxazosin Mesylate [Cardura Xl] 8 mg PO HS 04/13/16 Lamotrigine [Lamictal] 200 mg PO HS 04/13/16 Quetiapine Fumarate [Seroquel -] 200 mg PO HS 04/13/16 Atorvastatin Ca [Lipitor] 80 mg PO HS 04/21/16 Venlafaxine HCl ER [Effexor Xr -] 375 mg PO DAILY 05/22/16 [place] Carbonate [Eskalith -] 900 mg PO HS 06/15/16 Brexpiprazole [Rexulti] 1 mg PO HS 11/07/16 Family Disease History - Family Disease History Family History: Denies Review of Systems - Review of Systems Constitutional: reports: No Symptoms Eyes: reports: No Symptoms HENT: reports: No Symptoms Neck: reports: No Symptoms Cardiovascular: reports: No Symptoms Respiratory: reports: No Symptoms Gastrointestinal: reports: No Symptoms Genitourinary: reports: No Symptoms Musculoskeletal: reports: No Symptoms Integumentary: reports: No Symptoms Neurological: reports: No Symptoms Endocrine: reports: No Symptoms Hematology/Lymphatic: reports: No Symptoms Psychiatric: reports: No Symptoms Physical Examination Vital Signs: Vital Signs Temperature 98.0 F 11/23/16 06:22 Pulse Rate 55 L 11/23/16 06:22 Respiratory Rate 18 11/23/16 06:22 Blood Pressure 127/63 11/23/16 06:22 O2 Sat by Pulse Oximetry (%) Constitutional: Yes: Well Nourished, No Distress, Calm Eyes: Yes: WNL, Conjunctiva Clear, EOM Intact HENT: Yes: WNL, Atraumatic, Normocephalic Neck: Yes: WNL, Supple, Trachea Midline Cardiovascular: Yes: WNL, Regular Rate and Rhythm, S1, S2 Respiratory: Yes: WNL, Regular, CTA Bilaterally Gastrointestinal: Yes: WNL, Normal Bowel Sounds, Soft ...Rectal Exam: Yes: Deferred Renal/: Yes: WNL Breast(s): Yes: WNL Musculoskeletal: Yes: WNL Extremities: Yes: WNL Edema: No Peripheral Pulses WNL: Yes Peripheral Pulses: Left Radial: 4+, Right Radial: 4+, Left Doralis Pedis: 3+, Right Dorsalis Pedis: 3+, Left Femoral: 3+, Right Femoral: 3+ Integumentary: Yes: WNL Neurological: Yes: WNL, Alert, Oriented ...Motor Strength: WNL Psychiatric: Yes: WNL, Alert, Oriented Labs: reviewed 07/07 Imaging - Results EKG: Image Reviewed, Other (nsr. anterior infarct noted unchanged from previous ekg, pmh of [place]) Assessment/Plan pt is a 66 y/o male, that presents for ect, he has received anesthesia in the past and denies any adverse reaction to anesthesia labs and ekg reviewed pt is medically optimized for procedure.
[2016-11-23] MEDS ORDERED: KETAMINE HCL 500 MG/10 ML VIAL ONE (07:52)
[2016-11-23 09:08] VITALS: TEMP 98.2
[2016-11-23 09:21] VITALS: BP 133/67; PULSE 62
== END 2016-11-23 09:15 | disposition home or self-care (01) ==
LOC: FECT 05:40
PROVIDERS: ATTEND Psychiatry & Neurology Psychiatry
PROC: GZB4ZZZ Other Electroconvulsive Therapy (ICD-10-PCS; principal; 2016-11-23 07:30)
DX: F33.2 Major depressive disorder, recurrent severe without psychotic features (principal)
CPT/HCPCS: 90870; 94760

== ENCOUNTER 2016-12-05 05:37 | Day surgery (SDC) | payer OTHER, BC ==
[2016-12-05] MEDS ORDERED: KETAMINE HCL 500 MG/10 ML VIAL ONE (06:57)
[2016-12-05] MEDS ORDERED: LACTATED RINGERS SOLUTION 1,000 ML IV SCH (07:15)
[2016-12-05 07:45] VITALS: PULSE 56; TEMP 98.4
[2016-12-05 08:38] VITALS: BP 134/76
== END 2016-12-05 08:25 | disposition home or self-care (01) ==
LOC: FECT 05:37
PROVIDERS: ATTEND Psychiatry & Neurology Psychiatry
PROC: GZB4ZZZ Other Electroconvulsive Therapy (ICD-10-PCS; principal; 2016-12-05 07:15)
DX: F33.2 Major depressive disorder, recurrent severe without psychotic features (principal)
CPT/HCPCS: 90870; 94760

== ENCOUNTER 2016-12-19 05:42 | Day surgery (SDC) | payer OTHER ==
[2016-12-14 08:03] VITALS: BMI 29.7
[2016-12-19] MEDS ORDERED: KETAMINE HCL 500 MG/10 ML VIAL ONE (06:54)
[2016-12-19 07:50] VITALS: TEMP 97.6
[2016-12-19 08:06] VITALS: BP 128/67; PULSE 57
== END 2016-12-19 08:07 | disposition home or self-care (01) ==
LOC: FECT 05:42
PROVIDERS: ATTEND Psychiatry & Neurology Psychiatry
PROC: GZB4ZZZ Other Electroconvulsive Therapy (ICD-10-PCS; principal; 2016-12-19 07:00)
DX: F33.2 Major depressive disorder, recurrent severe without psychotic features (principal)
CPT/HCPCS: 90870; 94760

== ENCOUNTER 2017-01-02 05:34 | Day surgery (SDC) | payer OTHER, BC ==
[2016-12-20 09:51] VITALS: BMI 29.7
--- NOTE | 2017-01-02 07:13 | HP ---
Admitting History and Physical - Admission History of Present Illness: patient is a 66 y/o male with a past medical history of [place] stent x 2, bipolar disorder, and hyperlipidemia. Patient presents for ect his last ect was . patient reports feeling well, he denies any recent illness or hospitalizations. patient reports a significant improvement in mood since starting ect. he denies any changes in his medications. Patient denies any suicidal or homicidal ideation, visual or auditory hallucinations. History Source: Patient Limitations to Obtaining History: No Limitations - Past Medical History Cardiovascular: Yes: HTN, [place] Psych: Yes: Anxiety, Bipolar, Depression - Smoking History Smoking history: Never smoked Have you smoked in the past 12 months: No - Alcohol/Substance Use Hx Alcohol Use: No - Social History Usual Living Arrangement: Yes: With Spouse ADL: Independent History of Recent Travel: No Home Medications - Allergies Allergies/Adverse Reactions: Allergies Allergy/AdvReac Type Severity Reaction Status Date / Time Penicillins Allergy Severe Hives Verified 10/26/16 06:18 - Home Medications Home Medications: Ambulatory Orders Aspirin [ASA -] 81 mg PO HS 04/13/16 Clonazepam [Klonopin -] 0.5 mg PO TID PRN 04/13/16 Doxazosin Mesylate [Cardura Xl] 8 mg PO HS 04/13/16 Lamotrigine [Lamictal] 200 mg PO HS 04/13/16 Atorvastatin Ca [Lipitor] 80 mg PO HS 04/21/16 Venlafaxine HCl ER [Effexor Xr -] 375 mg PO DAILY 05/22/16 [place] Carbonate [Eskalith -] 900 mg PO HS 06/15/16 Brexpiprazole [Rexulti] 1 mg PO DAILY 11/07/16 Quetiapine Fumarate [Seroquel] 100 tab PO HS 12/19/16 Family Disease History - Family Disease History Family History: Denies Review of Systems - Review of Systems Constitutional: reports: No Symptoms Eyes: reports: No Symptoms HENT: reports: No Symptoms Neck: reports: No Symptoms Cardiovascular: reports: No Symptoms Respiratory: reports: No Symptoms Gastrointestinal: reports: No Symptoms Genitourinary: reports: No Symptoms Musculoskeletal: reports: No Symptoms Integumentary: reports: No Symptoms Neurological: reports: No Symptoms Endocrine: reports: No Symptoms Hematology/Lymphatic: reports: No Symptoms Psychiatric: reports: No Symptoms Physical Examination Vital Signs: Vital Signs Temperature 98.5 F 01/02/17 06:46 Pulse Rate 56 L 01/02/17 06:46 Respiratory Rate 18 01/02/17 06:46 Blood Pressure 144/71 01/02/17 06:46 O2 Sat by Pulse Oximetry (%) 100 01/02/17 06:46 Constitutional: Yes: Well Nourished, No Distress, Calm Eyes: Yes: WNL, Conjunctiva Clear, EOM Intact HENT: Yes: WNL, Atraumatic, Normocephalic Neck: Yes: WNL, Supple, Trachea Midline Cardiovascular: Yes: WNL, Regular Rate and Rhythm, S1, S2 Respiratory: Yes: WNL, Regular, CTA Bilaterally Gastrointestinal: Yes: WNL, Normal Bowel Sounds, Soft ...Rectal Exam: Yes: Deferred Renal/: Yes: WNL Breast(s): Yes: WNL Musculoskeletal: Yes: WNL Extremities: Yes: WNL Edema: No Peripheral Pulses WNL: Yes Peripheral Pulses: Left Radial: 4+, Right Radial: 4+, Left Doralis Pedis: 3+, Right Dorsalis Pedis: 3+, Left Femoral: 3+, Right Femoral: 3+ Integumentary: Yes: WNL Neurological: Yes: WNL, Alert, Oriented ...Motor Strength: WNL Psychiatric: Yes: WNL, Alert, Oriented Labs: reviewed 07/07 Imaging - Results EKG: Image Reviewed, Other (nsr anteroseptal infarct) Assessment/Plan pt is a 66 y/o male that presents for ect, labs and ekg reviewed pt is medically optimized for procedure informed consent, risks/benefits to be obtained by Dr Ivory
[2017-01-02] MEDS ORDERED: KETAMINE HCL 500 MG/10 ML VIAL ONE (07:51)
[2017-01-02 08:45] VITALS: TEMP 98.8
[2017-01-02 09:34] VITALS: BP 150/75; PULSE 64
== END 2017-01-02 09:15 | disposition home or self-care (01) ==
LOC: FECT 05:34
PROVIDERS: ATTEND Psychiatry & Neurology Psychiatry
PROC: GZB4ZZZ Other Electroconvulsive Therapy (ICD-10-PCS; principal; 2017-01-02 07:45)
DX: F33.2 Major depressive disorder, recurrent severe without psychotic features (principal)
CPT/HCPCS: 90870; 94760

== ENCOUNTER 2017-01-23 05:37 | Day surgery (SDC) | payer OTHER, BC ==
[2017-01-15 11:46] VITALS: BMI 29.7
[2017-01-23] MEDS ORDERED: KETAMINE HCL 500 MG/10 ML VIAL ONE (07:23)
[2017-01-23 07:26] LABS: BASOPHIL 1.6 % (0-2.0); EOSINOPHIL 3.5 % (0-4.5); MCH 32.6 pg (25.7-33.7); MCHC 33.5 g/dl (32.0-35.9); MEAN CELL VOLUME 97.4 fl (80-96); MEAN PLT VOLUME 10.6 fl (7.5-11.1); NEUTROPHILS 57.1 % (42.8-82.8); PLATELET COUNT 221 K/MM3 (134-434); RDW 12.3 % (11.9-15.9); WHITE BLOOD COUNT 7.3 K/mm3 (4.0-10.8)
[2017-01-23 08:20] VITALS: TEMP 97.8
[2017-01-23 08:57] VITALS: BP 135/65; PULSE 61
== END 2017-01-23 08:50 | disposition home or self-care (01) ==
LOC: FECT 05:37
PROVIDERS: ATTEND Psychiatry & Neurology Psychiatry
PROC: GZB4ZZZ Other Electroconvulsive Therapy (ICD-10-PCS; principal; 2017-01-23 07:00)
DX: F33.2 Major depressive disorder, recurrent severe without psychotic features (principal)
CPT/HCPCS: 36415; 80051; 85025; 90870; 94760

== ENCOUNTER 2017-02-13 05:38 | Day surgery (SDC) | payer OTHER, BC ==
[2017-02-06 17:06] VITALS: BMI 29.7
--- NOTE | 2017-02-13 07:03 | HP ---
Admitting History and Physical - Admission History of Present Illness: Patient is a 67 y/o male with a past medical history of hypertension, [place] stent x2, bipolar disorder, and hyperlipidemia. patient presents for ect, his last was 01/23/17. Patient reports feeling well, he denies any changes in medications , Patient denies any recent illnesses or hospitalizations. Patient reports an improvement in mood and depressive symptoms since starting ect. He denies any suicidal or homicidal ideation History Source: Patient Limitations to Obtaining History: No Limitations - Past Medical History Cardiovascular: Yes: HTN, [place] Psych: Yes: Anxiety, Bipolar, Depression - Smoking History Smoking history: Never smoked Have you smoked in the past 12 months: No - Alcohol/Substance Use Hx Alcohol Use: No - Social History ADL: Independent History of Recent Travel: No Home Medications - Allergies Allergies/Adverse Reactions: Allergies Allergy/AdvReac Type Severity Reaction Status Date / Time Penicillins Allergy Severe Hives Verified 02/06/17 17:04 - Home Medications Home Medications: Ambulatory Orders Aspirin [ASA -] 81 mg PO HS 04/13/16 Clonazepam [Klonopin -] 0.5 mg PO TID PRN 04/13/16 Doxazosin Mesylate [Cardura Xl] 8 mg PO HS 04/13/16 Lamotrigine [Lamictal] 200 mg PO HS 04/13/16 Atorvastatin Ca [Lipitor] 80 mg PO HS 04/21/16 Venlafaxine HCl ER [Effexor Xr -] 375 mg PO DAILY 05/22/16 [place] Carbonate [Eskalith -] 900 mg PO HS 06/15/16 Brexpiprazole [Rexulti] 1 mg PO DAILY 11/07/16 Quetiapine Fumarate [Seroquel] 50 tab PO HS 12/19/16 Family Disease History - Family Disease History Family History: Denies Review of Systems - Review of Systems Constitutional: reports: No Symptoms Eyes: reports: No Symptoms HENT: reports: No Symptoms Neck: reports: No Symptoms Cardiovascular: reports: No Symptoms Respiratory: reports: No Symptoms Gastrointestinal: reports: No Symptoms Genitourinary: reports: No Symptoms Musculoskeletal: reports: No Symptoms Integumentary: reports: No Symptoms Neurological: reports: No Symptoms Endocrine: reports: No Symptoms Hematology/Lymphatic: reports: No Symptoms Psychiatric: reports: No Symptoms Physical Examination Constitutional: Yes: Well Nourished, No Distress, Calm Eyes: Yes: WNL, Conjunctiva Clear, EOM Intact HENT: Yes: WNL, Atraumatic, Normocephalic Neck: Yes: WNL, Supple, Trachea Midline Cardiovascular: Yes: WNL, Regular Rate and Rhythm, S1, S2 Respiratory: Yes: WNL, Regular, CTA Bilaterally Gastrointestinal: Yes: WNL, Normal Bowel Sounds, Soft ...Rectal Exam: Yes: Deferred Renal/: Yes: WNL Musculoskeletal: Yes: WNL Extremities: Yes: WNL Edema: No Peripheral Pulses WNL: Yes Peripheral Pulses: Left Radial: 4+, Right Radial: 4+, Left Doralis Pedis: 3+, Right Dorsalis Pedis: 3+, Left Femoral: 3+, Right Femoral: 3+ Integumentary: Yes: WNL Neurological: Yes: WNL, Alert, Oriented ...Motor Strength: WNL Psychiatric: Yes: WNL, Alert, Oriented Labs: Laboratory Tests 01/23/17 01/23/17 06:15 06:15 WBC 7.3 RBC 4.11 Hgb 13.4 Hct 40.0 MCV 97.4 H MCH 32.6 MCHC 33.5 RDW 12.3 Plt Count 221 MPV 10.6 Neutrophils % 57.1 Lymphocytes % 30.3 Monocytes % 7.5 Eosinophils % 3.5 Basophils % 1.6 Sodium 136 Potassium 4.3 Chloride 107 Carbon Dioxide 28 Imaging - Results EKG: Other (nsr) Assessment/Plan patient is a 67 y/o male that presents for ect, labs and ekg reviewed pt is low risk for procedure informed consent, risks/benefits to be obtained by Dr Ivory.
[2017-02-13] MEDS ORDERED: KETAMINE HCL 500 MG/10 ML VIAL ONE (07:26)
[2017-02-13 08:38] VITALS: TEMP 98.5
[2017-02-13 08:48] VITALS: BP 154/71; PULSE 67
== END 2017-02-13 08:35 | disposition home or self-care (01) ==
LOC: FECT 05:38
PROVIDERS: ATTEND Psychiatry & Neurology Psychiatry
PROC: GZB4ZZZ Other Electroconvulsive Therapy (ICD-10-PCS; principal; 2017-02-13 07:00)
DX: F33.2 Major depressive disorder, recurrent severe without psychotic features (principal)
CPT/HCPCS: 90870; 94760

== ENCOUNTER 2017-03-12 05:40 | Day surgery (SDC) | payer OTHER, BC ==
[2017-03-05 14:04] VITALS: BMI 29.7
[2017-03-12 06:07] VITALS: TEMP 98
[2017-03-12] MEDS ORDERED: KETAMINE HCL 500 MG/10 ML VIAL ONE (07:10)
[2017-03-12 08:38] VITALS: BP 125/75; PULSE 58
[2017-03-12] MEDS ORDERED: ONDANSETRON 4 MG/2 ML VIAL IVPUSH PRN (12:55)
[2017-03-12] MEDS ORDERED: LACTATED RINGERS SOLUTION 1,000 ML IV SCH (13:00)
== END 2017-03-12 09:05 | disposition home or self-care (01) ==
LOC: FECT 05:40
PROVIDERS: ATTEND Psychiatry & Neurology Psychiatry
PROC: GZB4ZZZ Other Electroconvulsive Therapy (ICD-10-PCS; principal; 2017-03-12 07:15)
DX: F33.2 Major depressive disorder, recurrent severe without psychotic features (principal)
CPT/HCPCS: 90870; 94760

== ENCOUNTER 2017-04-13 05:32 | Day surgery (SDC) | payer OTHER, BC ==
--- NOTE | 2017-04-13 06:40 | HP ---
Admitting History and Physical - Admission History of Present Illness: 67yo M with PMH HTN, [place] s/p stents, dyslipidemia and bipolar presenting for ECT therapy. Last session was 02/13/17. States he has been complaint with medications with no recent changes. no recent hospitalizations. denies CP, SOB, fever, chills, cough, N/V/c/D - Past Medical History Cardiovascular: Yes: HTN, [place] Psych: Yes: Anxiety, Bipolar, Depression - Smoking History Smoking history: Never smoked Have you smoked in the past 12 months: No - Alcohol/Substance Use Hx Alcohol Use: No - Social History ADL: Independent History of Recent Travel: No Home Medications - Allergies Allergies/Adverse Reactions: Allergies Allergy/AdvReac Type Severity Reaction Status Date / Time Penicillins Allergy Severe Hives Verified 02/06/17 17:04 - Home Medications Home Medications: Ambulatory Orders Aspirin [ASA -] 81 mg PO HS 04/13/16 Clonazepam [Klonopin -] 0.5 mg PO TID PRN 04/13/16 Doxazosin Mesylate [Cardura Xl] 8 mg PO HS 04/13/16 Lamotrigine [Lamictal] 200 mg PO HS 04/13/16 Atorvastatin Ca [Lipitor] 80 mg PO HS 04/21/16 Venlafaxine HCl ER [Effexor Xr -] 375 mg PO DAILY 05/22/16 [place] Carbonate [Eskalith -] 900 mg PO HS 06/15/16 Brexpiprazole [Rexulti] 1 mg PO DAILY 11/07/16 Quetiapine Fumarate [Seroquel] 50 tab PO HS 12/19/16 Review of Systems - Review of Systems Constitutional: denies: No Symptoms, Chills, Diaphoresis, Fever, Lethargy, Loss of Appetite, Malaise, Night Sweats, Unintentional Wgt. Loss, Weakness, Other Eyes: denies: No Symptoms, Blind Spots, Blurred Vision, Double Vision, Eye Pain , Floaters, Photophobia, Recent Change in Vision, Other HENT: denies: No Symptoms, Difficult Swallowing, Ear Discharge, Ear Pain, Epistaxis, Gingival Bleeding, Hearing Loss, Mouth Swelling, Nasal Congestion, Ocular Prosthesis, Throat Pain, Toothache, Ringing in Ears, Other Neck: denies: No Symptoms, Decreased ROM, Lumps, Pain on Movement, Stiffness, Swollen Glands, Tenderness, Other Cardiovascular: denies: No Symptoms, Chest Pain, Edema, Palpitations, Shortness of Breath, Other Respiratory: denies: No Symptoms, Cough, Exercise Intolerance, Hemoptysis, Orthopnea, PND, Snoring, SOB, SOB on Exertion, Wheezing, Other Gastrointestinal: denies: No Symptoms, Abdominal Pain, Bloating, Constipation, Diarrhea, Dysphagia, Indigestion, Melena, Nausea, Rectal Bleeding, Vomiting, Vomiting Blood, Other Physical Examination Constitutional: No: Well Nourished, No Distress, Calm, Anxious, Ashen, Cachectic , Diaphoresis, Mild Distress, Moderate Distress, Severe Distress, Obese, Pallor , Poor Hygeine, Thin, Other Eyes: Yes: WNL HENT: Yes: WNL Cardiovascular: No: WNL, Regular Rate and Rhythm, Bradycardia, Tachycardia, Pulse Irregular, Bruit, JVD, Gallop, Murmur, Rub, S1, S2, S3, S4, Varicosities, Other Respiratory: No: WNL, Regular, CTA Bilaterally, Accessory Muscle Use, Bradypnea , Vic-Baez, Cough, Diminished, Dullness, Hyperresonant, Intubated, Kussmaul , Mechanically Ventilated, On BiPap, On Nasal O2, On Venti-Mask, Orthopnea, Poor Air Entry, Rales, Rhonchi, SOB, SOB on Exertion, Stridor, Tachypnea, Wheezes, Other Gastrointestinal: Yes: WNL. No: Normal Bowel Sounds, Soft, Abdomen, Obese, Ascites, Distention, Hematemesis, Hemorrhoids, Hepatomegaly, Hernia, Hyperactive Bowel Sounds, Hypoactive Bowel Sounds, Melena, Palpable Mass, Pulsatile Mass, Rectal Bleeding, Splenomegaly, Tenderness, Tenderness, Epigastrium, Tenderness, Rebound, Vomiting, Other Extremities: Yes: WNL Imaging - Results EKG: Report Reviewed (sinus marisel) Assessment/Plan A/P: 67yo M with PMH CAD s/P stents, HTN, dyslipidemia and Bipolar presenting for ECT treatement Labs, EKG reviewed. pt is low risk for procedure informed consent, risks/benefits to be obtained by Dr Ivory. Visit type - Emergency Visit Emergency Visit: No - New Patient This patient is new to me today: Yes Date on this admission: 04/13/17 - Critical Care Critical Care patient: No
[2017-04-13 07:09] VITALS: BMI 29.7
[2017-04-13] MEDS ORDERED: KETAMINE HCL 500 MG/10 ML VIAL ONE (07:37)
[2017-04-13] MEDS ORDERED: LACTATED RINGERS SOLUTION 1,000 ML IV SCH (08:15)
[2017-04-13 08:37] VITALS: BP 115/66; PULSE 84
[2017-04-13 09:50] VITALS: TEMP 98.2
== END 2017-04-13 08:50 | disposition home or self-care (01) ==
LOC: FECT 05:32
PROVIDERS: ATTEND Psychiatry & Neurology Psychiatry
PROC: GZB4ZZZ Other Electroconvulsive Therapy (ICD-10-PCS; principal; 2017-04-13 07:30)
DX: F33.2 Major depressive disorder, recurrent severe without psychotic features (principal)
CPT/HCPCS: 90870; 94760

== ENCOUNTER 2017-05-07 05:41 | Day surgery (SDC) | payer OTHER, BC ==
[2017-04-30 15:53] VITALS: BMI 29.7
[2017-05-07] MEDS ORDERED: KETAMINE HCL 500 MG/10 ML VIAL ONE (07:08)
[2017-05-07 07:57] VITALS: PULSE 80; TEMP 97.7
[2017-05-07 08:25] VITALS: BP 113/62
--- NOTE | 2017-05-07 15:49 | EKG ---
Test Reason : Blood Pressure : / mmHG Vent. Rate : 054 BPM Atrial Rate : 054 BPM P-R Int : 176 ms QRS Dur : 092 ms QT Int : 440 ms P-R-T Axes : 018 -22 040 degrees QTc Int : 417 ms SINUS BRADYCARDIA MODERATE VOLTAGE CRITERIA FOR LVH, MAY BE NORMAL VARIANT CANNOT RULE OUT INFERIOR INFARCT , AGE UNDETERMINED POOR R WAVE PROGRESSION ABNORMAL ECG WHEN COMPARED WITH ECG OF 12-OCT-2016 07:01, NO SIGNIFICANT CHANGE WAS FOUND Confirmed by CHIO GAN MD ([id number]) on 05/07/2017 3:49:02 PM Referred By: Jayson Ivory Confirmed By:CHIO GAN MD
== END 2017-05-07 08:20 | disposition home or self-care (01) ==
LOC: FECT 05:41
PROVIDERS: ATTEND Psychiatry & Neurology Psychiatry
PROC: GZB4ZZZ Other Electroconvulsive Therapy (ICD-10-PCS; principal; 2017-05-07 07:15)
DX: F33.2 Major depressive disorder, recurrent severe without psychotic features (principal)
CPT/HCPCS: 90870; 93005; 94760

== ENCOUNTER 2017-06-11 05:49 | Day surgery (SDC) | payer OTHER, BC ==
[2017-05-31 12:12] VITALS: BMI 29.7
[2017-06-11] MEDS ORDERED: KETAMINE HCL 500 MG/10 ML VIAL ONE (07:29)
[2017-06-11 09:28] VITALS: TEMP 98.1
[2017-06-11 09:29] VITALS: BP 127/76; PULSE 59
[2017-06-11] MEDS ORDERED: oxyCODONE HCL 5 MG TABLET PO PRN (09:51)
[2017-06-11] MEDS ORDERED: ONDANSETRON 4 MG/2 ML VIAL IVPUSH PRN (09:51)
[2017-06-11] MEDS ORDERED: LACTATED RINGERS SOLUTION 1,000 ML IV SCH (10:00)
== END 2017-06-11 09:10 | disposition home or self-care (01) ==
LOC: FECT 05:49
PROVIDERS: ATTEND Psychiatry & Neurology Psychiatry
PROC: GZB4ZZZ Other Electroconvulsive Therapy (ICD-10-PCS; principal; 2017-06-11 07:30)
DX: F33.2 Major depressive disorder, recurrent severe without psychotic features (principal)

== ENCOUNTER 2017-07-20 05:41 | Day surgery (SDC) | payer OTHER, BC ==
[2017-07-10 17:19] VITALS: BMI 29.7
--- NOTE | 2017-07-20 07:11 | HP ---
HISTORY OF PRESENT ILLNESS: This 67 yr old male with hx of depression for monthly treatment of ECT. Scheduled today for ECT PAST MEDICAL HISTORY: CAD with Stent in 2015, HTN, HLD, Bipolar, anxiety, PAST SURGICAL HISTORY: monthly ECT treatment Social History: Smoking:anjelica Alcohol:denies Drugs:denies Family History: Allergies Penicillins Allergy (Severe, Verified 06/11/17 07:07) Hives HOME MEDICATIONS: Home Medications Medication Instructions Recorded Aspirin [ASA -] 81 mg PO HS 04/13/16 Doxazosin Mesylate [Cardura Xl] 8 mg PO HS 04/13/16 Lamotrigine [Lamictal] 200 mg PO HS 04/13/16 clonazePAM [Klonopin -] 0.5 mg PO TID PRN 04/13/16 Atorvastatin Ca [Lipitor] 80 mg PO HS 04/21/16 Venlafaxine HCl ER [Effexor Xr -] 375 mg PO DAILY 05/22/16 [place] Carbonate [Eskalith -] 900 mg PO HS 06/15/16 Brexpiprazole [Rexulti] 1 mg PO HS 11/07/16 REVIEW OF SYSTEMS CONSTITUTIONAL: Absent: fever, chills, diaphoresis, generalized weakness, malaise, loss of appetite, weight change HEENT: Absent: rhinorrhea, nasal congestion, throat pain, throat swelling, difficulty swallowing, mouth swelling, ear pain, eye pain, visual changes CARDIOVASCULAR: Absent: chest pain, syncope, palpitations, irregular heart rate, lightheadedness , peripheral edema RESPIRATORY: Absent: cough, shortness of breath, dyspnea with exertion, orthopnea, wheezing, stridor, hemoptysis GASTROINTESTINAL: Absent: abdominal pain, abdominal distension, nausea, vomiting, diarrhea, constipation, melena, hematochezia GENITOURINARY: Absent: dysuria, frequency, urgency, hesitancy, hematuria, flank pain, genital pain MUSCULOSKELETAL: Absent: myalgia, arthralgia, joint swelling, back pain, neck pain SKIN: Absent: rash, itching, pallor HEMATOLOGIC/IMMUNOLOGIC: Absent: easy bleeding, easy bruising, lymphadenopathy, frequent infections ENDOCRINE: Absent: unexplained weight gain, unexplained weight loss, heat intolerance, cold intolerance NEUROLOGIC: Absent: headache, focal weakness or paresthesias, dizziness, unsteady gait, seizure, mental status changes, bladder or bowel incontinence PSYCHIATRIC: Absent: anxiety, depression, suicidal or homicidal ideation, hallucinations. PHYSICAL EXAMINATION GENERAL: Awake, alert, and fully oriented, in no acute distress. HEAD: Normal with no signs of trauma. EYES: Pupils equal, round and reactive to light, extraocular movements intact, sclera anicteric, conjunctiva clear. No lid lag. EARS, NOSE, THROAT: Ears normal, nares patent, oropharynx clear without exudates. Moist mucous membranes. NECK: Normal range of motion, supple without lymphadenopathy, JVD, or masses. LUNGS: Breath sounds equal, clear to auscultation bilaterally. No wheezes, and no crackles. No accessory muscle use. HEART: Regular rate and rhythm, normal S1 and S2 without murmur, rub or gallop. ABDOMEN: Soft, nontender, not distended, normoactive bowel sounds, no guarding, no rebound, no masses. No hepatomegaly or splenomegaly. MUSCULOSKELETAL: Normal range of motion at all joints. No bony deformities or tenderness. No CVA tenderness. UPPER EXTREMITIES: 2+ pulses, warm, well-perfused. No cyanosis. No clubbing. No peripheral edema. LOWER EXTREMITIES: 2+ pulses, warm, well-perfused. No calf tenderness. No peripheral edema. NEUROLOGICAL: Cranial nerves II-XII intact. Normal speech. Normal gait. PSYCHIATRIC: Cooperative. Good eye contact. Appropriate mood and affect. SKIN: Warm, dry, normal turgor, no rashes or lesions noted, normal capillary refill. ASSESSMENT/PLAN: Pt is schedule for ECT and is medically cleared today for procedure. EKG reviewed 05/10 without any changes from prior. consent and informed benefits and risks provided by Dr. Mir Visit type - Emergency Visit Emergency Visit: No - New Patient This patient is new to me today: Yes Date on this admission: 07/20/17 - Critical Care Critical Care patient: No Hospitalist Screening - Colonoscopy Questionnaire Colonoscopy Questionnaire: Colonoscopy Questionnaire - Patient: 50 - 75 years old and never had a screening colonoscopy: Yes History of colon or rectal polyps, or CA: No History of IBD, Crohn's disease or UC: No History of abdominal radiation therapy as a child: No - Relative: 1 with colon or rectal CA, or polyps at age 60 or younger: No Colon or rectal CA diagnosed at age 45 or younger: No Multiple relatives with colon or rectal CA: No - Outcome: Screening Result: Positive Screen
[2017-07-20] MEDS ORDERED: KETAMINE HCL 500 MG/10 ML VIAL ONE (07:55)
[2017-07-20 08:46] VITALS: TEMP 98.2
[2017-07-20 09:14] VITALS: BP 124/72; PULSE 60
== END 2017-07-20 09:10 | disposition home or self-care (01) ==
LOC: FECT 05:41
PROVIDERS: ATTEND Psychiatry & Neurology Psychiatry
PROC: GZB4ZZZ Other Electroconvulsive Therapy (ICD-10-PCS; principal; 2017-07-20 07:00)
DX: F33.2 Major depressive disorder, recurrent severe without psychotic features (principal)
CPT/HCPCS: 90870; 94760

== ENCOUNTER 2017-08-14 05:43 | Day surgery (SDC) | payer OTHER, BC ==
[2017-08-14 06:53] VITALS: TEMP 98.2; BMI 32.8
[2017-08-14] MEDS ORDERED: KETAMINE HCL 500 MG/10 ML VIAL ONE (07:19)
[2017-08-14 07:45] LABS: BASO % 0.9 % (0-2.0); EOS % 2.7 % (0-4.5); HEMATOCRIT 42.6 % (35.4-49); HEMOGLOBIN 14.3 GM/dL (11.7-16.9); LYMPH % 29.1 % (8-40); MCH 32.1 pg (25.7-33.7); MCHC 33.7 g/dl (32.0-35.9); MEAN CELL VOLUME 95.3 fl (80-96); MEAN PLT VOLUME 9.8 fl (7.5-11.1); MONO % 8.6 % (3.8-10.2); NEUT % 58.7 % (42.8-82.8); PLATELET COUNT 238 K/MM3 (134-434); RBC 4.47 M/mm3 (4.00-5.60); WHITE BLOOD COUNT 9.4 K/mm3 (4.0-10.0)
[2017-08-14 09:02] VITALS: BP 133/78; PULSE 56
[2017-08-14 09:25] LABS: BLOOD UREA NITROGEN 12 mg/dl (7-18); GLUCOSE,RANDOM 91 mg/dl (74-106); SODIUM 141 mmol/L (136-145)
[2017-08-14 09:26] LABS: ALBUMIN 3.9 g/dl (3.5-5.0); ALK PHOS 66 U/L (32-92); ANION GAP 6 (8-16); BILIRUBIN,TOTAL 0.4 mg/dl (0.2-1.0); CALCIUM 9.4 mg/dl (8.4-10.2); CHLORIDE 109 mmol/L (98-107); CO2 26 mmol/L (22-28); POTASSIUM 4.2 mmol/L (3.5-5.1); SGOT/AST 24 U/L (10-42); SGPT/ALT 33 U/L (10-40)
== END 2017-08-14 09:05 | disposition home or self-care (01) ==
LOC: FECT 05:43
PROVIDERS: ATTEND Psychiatry & Neurology Psychiatry
PROC: GZB4ZZZ Other Electroconvulsive Therapy (ICD-10-PCS; principal; 2017-08-14 07:15)
DX: F33.2 Major depressive disorder, recurrent severe without psychotic features (principal)
CPT/HCPCS: 36415; 80053; 85025; 90870; 94760

== ENCOUNTER 2017-09-14 05:39 | Day surgery (SDC) | payer OTHER, BC ==
--- NOTE | 2017-09-14 07:06 | HP ---
Admitting History and Physical - Admission History of Present Illness: Patient is a 67 y/o male with a past medical history of depression,CAD (stent 2014), HTN, HLD, and bipolar disorder. Patient presents for ect, his last ect was 08/14/17. Patient reports a significant improvement in depressive symptoms since starting ect. He denies any changes in medications. Patient denies any recent illnesses or hospitalizations. Patient denies any suicidal or homicidal ideation, visual or auditory hallucinations. History Source: Patient Limitations to Obtaining History: No Limitations - Past Medical History Cardiovascular: Yes: HTN, [place] Psych: Yes: Anxiety, Bipolar, Depression - Smoking History Smoking history: Never smoked Have you smoked in the past 12 months: No - Alcohol/Substance Use Hx Alcohol Use: No - Social History Usual Living Arrangement: Yes: With Spouse ADL: Independent History of Recent Travel: No Home Medications - Allergies Allergies/Adverse Reactions: Allergies Allergy/AdvReac Type Severity Reaction Status Date / Time Penicillins Allergy Severe Hives Verified 06/11/17 07:07 - Home Medications Home Medications: Ambulatory Orders Aspirin [ASA -] 81 mg PO HS 04/13/16 Doxazosin Mesylate [Cardura Xl] 8 mg PO HS 04/13/16 Lamotrigine [Lamictal] 200 mg PO HS 04/13/16 Atorvastatin Ca [Lipitor] 80 mg PO HS 04/21/16 Venlafaxine HCl ER [Effexor Xr -] 375 mg PO DAILY 05/22/16 [place] Carbonate [Eskalith -] 900 mg PO HS 06/15/16 Brexpiprazole [Rexulti] 1 mg PO HS 11/07/16 Family Disease History - Family Disease History Family History: Denies Review of Systems - Review of Systems Constitutional: reports: No Symptoms Eyes: reports: No Symptoms HENT: reports: No Symptoms Neck: reports: No Symptoms Cardiovascular: reports: No Symptoms Respiratory: reports: No Symptoms Gastrointestinal: reports: No Symptoms Genitourinary: reports: No Symptoms Musculoskeletal: reports: No Symptoms Integumentary: reports: No Symptoms Neurological: reports: No Symptoms Endocrine: reports: No Symptoms Hematology/Lymphatic: reports: No Symptoms Psychiatric: reports: No Symptoms Physical Examination Constitutional: Yes: Well Nourished, No Distress, Calm Eyes: Yes: WNL, Conjunctiva Clear, EOM Intact HENT: Yes: WNL, Atraumatic, Normocephalic Neck: Yes: WNL, Supple, Trachea Midline Cardiovascular: Yes: WNL, Regular Rate and Rhythm, S1, S2 Respiratory: Yes: WNL, Regular, CTA Bilaterally Gastrointestinal: Yes: WNL, Normal Bowel Sounds, Soft ...Rectal Exam: Yes: Deferred Renal/: Yes: WNL Breast(s): Yes: WNL Musculoskeletal: Yes: WNL Extremities: Yes: WNL Edema: No Peripheral Pulses WNL: Yes Peripheral Pulses: Left Radial: 4+, Right Radial: 4+, Left Doralis Pedis: 3+, Right Dorsalis Pedis: 3+, Left Femoral: 3+, Right Femoral: 3+ Integumentary: Yes: WNL Neurological: Yes: WNL, Alert, Oriented ...Motor Strength: WNL Psychiatric: Yes: WNL, Alert, Oriented Labs: reviewed 08/08 Imaging - Results EKG: Image Reviewed, Other (sinus bradycardia) Assessment/Plan Patient is a 67 y/o male that presents for ect, labs and ekg reviewed. patient is medically optimized for procedure informed consent, risks/benefits to be obtained by Dr Ivory.
[2017-09-14 07:15] VITALS: TEMP 98.2; BMI 32.5
[2017-09-14] MEDS ORDERED: KETAMINE HCL 500 MG/10 ML VIAL ONE (07:55)
[2017-09-14 09:34] VITALS: BP 120/70; PULSE 59
== END 2017-09-14 09:20 | disposition home or self-care (01) ==
LOC: FECT 05:39
PROVIDERS: ATTEND Psychiatry & Neurology Psychiatry
PROC: GZB4ZZZ Other Electroconvulsive Therapy (ICD-10-PCS; principal; 2017-09-14 07:00)
DX: F33.2 Major depressive disorder, recurrent severe without psychotic features (principal)
CPT/HCPCS: 90870; 94760

== ENCOUNTER 2017-10-17 05:42 | Day surgery (SDC) | payer OTHER, BC ==
--- NOTE | 2017-10-17 07:25 | HP ---
Admitting History and Physical - Admission History of Present Illness: Patient is a 67 year old male with a past medical history of CAD (stent 2014), HTN, HLD, and bipolar disorder. Patient presents for ect, his last ect was . Patient reports feeling well. He denies any recent illnesses or hospitalizations. Patient reports compliance with prescribed medications. He denies any suicidal or homicidal ideation, visual or auditory hallucinations. History Source: Patient Limitations to Obtaining History: No Limitations - Past Medical History Cardiovascular: Yes: HTN, [place] Psych: Yes: Anxiety, Bipolar, Depression - Smoking History Smoking history: Never smoked Have you smoked in the past 12 months: No - Alcohol/Substance Use Hx Alcohol Use: No - Social History Usual Living Arrangement: Yes: With Spouse ADL: Independent History of Recent Travel: No Home Medications - Allergies Allergies/Adverse Reactions: Allergies Allergy/AdvReac Type Severity Reaction Status Date / Time Penicillins Allergy Severe Hives Verified 06/11/17 07:07 - Home Medications Home Medications: Ambulatory Orders Aspirin [ASA -] 81 mg PO HS 04/13/16 Doxazosin Mesylate [Cardura Xl] 8 mg PO HS 04/13/16 Lamotrigine [Lamictal] 200 mg PO HS 04/13/16 Atorvastatin Ca [Lipitor] 80 mg PO HS 04/21/16 Venlafaxine HCl ER [Effexor Xr -] 375 mg PO DAILY 05/22/16 [place] Carbonate [Eskalith -] 900 mg PO HS 06/15/16 Brexpiprazole [Rexulti] 1 mg PO HS 11/07/16 Family Disease History - Family Disease History Family History: Denies Review of Systems - Review of Systems Constitutional: reports: No Symptoms Eyes: reports: No Symptoms HENT: reports: No Symptoms Neck: reports: No Symptoms Cardiovascular: reports: No Symptoms Respiratory: reports: No Symptoms Gastrointestinal: reports: No Symptoms Genitourinary: reports: No Symptoms Musculoskeletal: reports: No Symptoms Integumentary: reports: No Symptoms Neurological: reports: No Symptoms Endocrine: reports: No Symptoms Hematology/Lymphatic: reports: No Symptoms Psychiatric: reports: No Symptoms Physical Examination Constitutional: Yes: Well Nourished, No Distress, Calm Eyes: Yes: WNL, Conjunctiva Clear, EOM Intact HENT: Yes: WNL, Atraumatic, Normocephalic Neck: Yes: WNL, Supple, Trachea Midline Cardiovascular: Yes: WNL, Regular Rate and Rhythm, S1, S2 Respiratory: Yes: WNL, Regular, CTA Bilaterally Gastrointestinal: Yes: WNL, Normal Bowel Sounds, Soft ...Rectal Exam: Yes: Deferred Renal/: Yes: WNL Breast(s): Yes: WNL Musculoskeletal: Yes: WNL Extremities: Yes: WNL Edema: No Peripheral Pulses WNL: Yes Peripheral Pulses: Left Radial: 4+, Right Radial: 4+, Left Doralis Pedis: 3+, Right Dorsalis Pedis: 3+, Left Femoral: 3+, Right Femoral: 3+ Integumentary: Yes: WNL Neurological: Yes: WNL, Alert, Oriented ...Motor Strength: WNL Psychiatric: Yes: WNL, Alert, Oriented Labs: reviewed 08/08 Imaging - Results EKG: Report Reviewed, Image Reviewed, Other (sinus bradycardia) Assessment/Plan patient is 67 y/o male that presents for ect, labs and ekg reviewed patient is medically optimized for procedure informed consent, risks/benefits to be obtained by Dr Ivory
[2017-10-17 07:40] VITALS: TEMP 97.6; BMI 32.1
[2017-10-17] MEDS ORDERED: KETAMINE HCL 500 MG/10 ML VIAL ONE (08:19)
[2017-10-17] MEDS ORDERED: ONDANSETRON 4 MG/2 ML VIAL IVPUSH PRN (09:38)
[2017-10-17 09:39] VITALS: BP 121/76; PULSE 61
== END 2017-10-17 09:41 | disposition home or self-care (01) ==
LOC: FECT 05:42
PROVIDERS: ATTEND Psychiatry & Neurology Psychiatry
PROC: GZB4ZZZ Other Electroconvulsive Therapy (ICD-10-PCS; principal; 2017-10-17 07:00)
DX: F33.2 Major depressive disorder, recurrent severe without psychotic features (principal)
CPT/HCPCS: 90870; 94760

== ENCOUNTER 2017-11-29 05:37 | Day surgery (SDC) | payer OTHER, BC ==
[2017-11-26 11:37] VITALS: BMI 32.1
[2017-11-29] MEDS ORDERED: KETAMINE HCL 500 MG/10 ML VIAL ONE (07:28)
[2017-11-29 08:35] VITALS: TEMP 98.3
[2017-11-29 08:46] VITALS: BP 139/66; PULSE 59
== END 2017-11-29 08:50 | disposition home or self-care (01) ==
LOC: FECT 05:37
PROVIDERS: ATTEND Psychiatry & Neurology Psychiatry
PROC: GZB4ZZZ Other Electroconvulsive Therapy (ICD-10-PCS; principal; 2017-11-29 08:15)
DX: F33.2 Major depressive disorder, recurrent severe without psychotic features (principal)
CPT/HCPCS: 90870; 94760

== ENCOUNTER 2017-12-07 05:36 | Day surgery (SDC) | payer OTHER, BC ==
[2017-11-30 13:36] VITALS: BMI 32.1
[2017-12-07] MEDS ORDERED: KETAMINE HCL 500 MG/10 ML VIAL ONE (07:20)
[2017-12-07 08:37] VITALS: TEMP 98.1
[2017-12-07 08:58] VITALS: BP 149/77; PULSE 66
== END 2017-12-07 09:00 | disposition home or self-care (01) ==
LOC: FECT 05:36
PROVIDERS: ATTEND Psychiatry & Neurology Psychiatry
PROC: GZB4ZZZ Other Electroconvulsive Therapy (ICD-10-PCS; principal; 2017-12-07 07:30)
DX: F33.2 Major depressive disorder, recurrent severe without psychotic features (principal)
CPT/HCPCS: 90870; 94760

== ENCOUNTER 2017-12-17 05:36 | Day surgery (SDC) | payer OTHER, BC ==
[2017-12-17 06:01] VITALS: TEMP 97.8; BMI 32.1
[2017-12-17] MEDS ORDERED: KETAMINE HCL 500 MG/10 ML VIAL ONE (06:47)
[2017-12-17 08:44] VITALS: BP 135/65; PULSE 59
== END 2017-12-17 08:35 | disposition home or self-care (01) ==
LOC: FECT 05:36
PROVIDERS: ATTEND Psychiatry & Neurology Psychiatry
PROC: GZB4ZZZ Other Electroconvulsive Therapy (ICD-10-PCS; principal; 2017-12-17 07:15)
DX: F33.2 Major depressive disorder, recurrent severe without psychotic features (principal)
CPT/HCPCS: 90870; 94760

== ENCOUNTER 2017-12-20 05:36 | Day surgery (SDC) | payer OTHER, BC ==
[2017-12-20 06:12] VITALS: TEMP 97.9; BMI 32.1
[2017-12-20] MEDS ORDERED: KETAMINE HCL 500 MG/10 ML VIAL ONE (07:01)
[2017-12-20 08:36] VITALS: BP 115/65; PULSE 55
== END 2017-12-20 08:30 | disposition home or self-care (01) ==
LOC: FECT 05:36
PROVIDERS: ATTEND Psychiatry & Neurology Psychiatry
PROC: GZB4ZZZ Other Electroconvulsive Therapy (ICD-10-PCS; principal; 2017-12-20 07:15)
DX: F33.2 Major depressive disorder, recurrent severe without psychotic features (principal)
CPT/HCPCS: 90870; 94760

== ENCOUNTER 2017-12-26 05:37 | Day surgery (SDC) | payer OTHER, BC ==
[2017-12-25 10:42] VITALS: BMI 32.1
--- NOTE | 2017-12-26 07:16 | HP ---
Admitting History and Physical - Admission History of Present Illness: Patient is 67 y/o male with a past medical history of CAD (stent 2014), HTN, HLD , and bipolar disorder. Patient presents for ect, he has been undergoing ect since 2016, his last ect was 12/20/17. patient denies any recent illness or hospitalizations. He does report an increase in depressive symptoms and his adderal was increased to 20mg daily and his ect sessions have been increased to twice a week. Patient reports tolerating the medication change. He denies any suicidal or homicidal ideation, visual or auditory hallucinations. History Source: Patient - Past Medical History Cardiovascular: Yes: HTN, [place] Psych: Yes: Anxiety, Bipolar, Depression - Smoking History Smoking history: Never smoked Have you smoked in the past 12 months: No - Alcohol/Substance Use Hx Alcohol Use: No History of Substance Use: reports: None - Social History Usual Living Arrangement: Yes: With Spouse ADL: Independent History of Recent Travel: No Home Medications - Allergies Allergies/Adverse Reactions: Allergies Allergy/AdvReac Type Severity Reaction Status Date / Time Penicillins Allergy Severe Hives Verified 11/30/17 13:33 - Home Medications Home Medications: Ambulatory Orders Aspirin [ASA -] 81 mg PO HS 04/13/16 Doxazosin Mesylate [Cardura Xl] 8 mg PO HS 04/13/16 Lamotrigine [Lamictal] 200 mg PO HS 04/13/16 Atorvastatin Ca [Lipitor] 80 mg PO HS 04/21/16 Venlafaxine HCl ER [Effexor Xr -] 375 mg PO DAILY 05/22/16 [place] Carbonate [Eskalith -] 900 mg PO HS 06/15/16 Cholecalciferol (Vitamin D3) [Vitamin D3] 1,000 unit PO DAILY 11/22/17 Lisinopril 10 mg PO DAILY 11/22/17 Multivit-Mins/Iron/Folic/Lycop [Centrum Men's Tablet] 1 each PO DAILY 11/22/17 Vitamin B Complex [Ultra B-100 Complex] 1 each PO DAILY 11/22/17 Dextroamphetamine/Amphetamine [Adderall 10 mg Tablet] 20 mg PO DAILY 11/29/17 Family Disease History - Family Disease History Family History: Denies Review of Systems - Review of Systems Constitutional: reports: No Symptoms Eyes: reports: No Symptoms HENT: reports: No Symptoms Neck: reports: No Symptoms Cardiovascular: reports: No Symptoms Respiratory: reports: No Symptoms Gastrointestinal: reports: No Symptoms Genitourinary: reports: No Symptoms Musculoskeletal: reports: No Symptoms Integumentary: reports: No Symptoms Neurological: reports: No Symptoms Endocrine: reports: No Symptoms Hematology/Lymphatic: reports: No Symptoms Psychiatric: reports: No Symptoms Physical Examination Constitutional: Yes: Well Nourished, No Distress, Calm Eyes: Yes: WNL, Conjunctiva Clear, EOM Intact HENT: Yes: WNL, Atraumatic, Normocephalic Neck: Yes: WNL, Supple, Trachea Midline Cardiovascular: Yes: WNL, Regular Rate and Rhythm Respiratory: Yes: WNL, Regular, CTA Bilaterally Gastrointestinal: Yes: WNL, Normal Bowel Sounds, Soft ...Rectal Exam: Yes: Deferred Renal/: Yes: WNL Breast(s): Yes: WNL Musculoskeletal: Yes: WNL Extremities: Yes: WNL Edema: No Peripheral Pulses WNL: Yes Peripheral Pulses: Left Radial: 4+, Right Radial: 4+, Left Doralis Pedis: 3+, Right Dorsalis Pedis: 3+, Left Femoral: 3+, Right Femoral: 3+ Integumentary: Yes: WNL Neurological: Yes: WNL, Alert, Oriented ...Motor Strength: WNL Psychiatric: Yes: WNL, Alert, Oriented Labs: reviewed 08/14/17 Imaging - Results EKG: Other (nsr non specific t wave abnormaility in the inferior leads) Other: Other (stress echo, 09/07-->lv moderately depressed, eft 45-49%) Assessment/Plan patient is a 67 y/o male that presents for ect, labs and ekg reviewed patient is medically optimized for procedure
[2017-12-26] MEDS ORDERED: LACTATED RINGERS SOLUTION 1,000 ML IV SCH (07:30)
[2017-12-26] MEDS ORDERED: KETAMINE HCL 500 MG/10 ML VIAL ONE (07:40)
[2017-12-26 08:49] VITALS: TEMP 98
[2017-12-26 09:55] VITALS: BP 124/76; PULSE 67
== END 2017-12-26 09:59 | disposition home or self-care (01) ==
LOC: FECT 05:37
PROVIDERS: ATTEND Psychiatry & Neurology Psychiatry
PROC: GZB4ZZZ Other Electroconvulsive Therapy (ICD-10-PCS; principal; 2017-12-26 07:30)
DX: F33.2 Major depressive disorder, recurrent severe without psychotic features (principal)
CPT/HCPCS: 90870; 94760

== ENCOUNTER 2017-12-28 05:37 | Day surgery (SDC) | payer OTHER, BC ==
[2017-12-28 06:24] VITALS: BMI 32.1
[2017-12-28] MEDS ORDERED: KETAMINE HCL 500 MG/10 ML VIAL ONE (06:57)
[2017-12-28 07:55] VITALS: TEMP 97.9
[2017-12-28 09:47] VITALS: BP 117/77; PULSE 64
== END 2017-12-28 09:00 | disposition home or self-care (01) ==
LOC: FECT 05:37
PROVIDERS: ATTEND Psychiatry & Neurology Psychiatry
PROC: GZB4ZZZ Other Electroconvulsive Therapy (ICD-10-PCS; principal; 2017-12-28 07:15)
DX: F33.2 Major depressive disorder, recurrent severe without psychotic features (principal)
CPT/HCPCS: 90870; 94760

== ENCOUNTER 2018-01-01 05:39 | Day surgery (SDC) | payer OTHER, BC ==
[2018-01-01 06:05] VITALS: TEMP 98.1; BMI 32.2
[2018-01-01] MEDS ORDERED: KETAMINE HCL 500 MG/10 ML VIAL ONE (07:06)
[2018-01-01 08:28] VITALS: BP 110/67; PULSE 61
[2018-01-01] MEDS ORDERED: ONDANSETRON 4 MG/2 ML VIAL IVPUSH PRN (08:55)
[2018-01-01] MEDS ORDERED: LACTATED RINGERS SOLUTION 1,000 ML IV SCH (09:00)
== END 2018-01-01 08:25 | disposition home or self-care (01) ==
LOC: FECT 05:39
PROVIDERS: ATTEND Psychiatry & Neurology Psychiatry
PROC: GZB4ZZZ Other Electroconvulsive Therapy (ICD-10-PCS; principal; 2018-01-01 07:45)
DX: F33.2 Major depressive disorder, recurrent severe without psychotic features (principal)
CPT/HCPCS: 90870; 94760

== ENCOUNTER 2018-01-04 05:36 | Day surgery (SDC) | payer OTHER, BC ==
[2018-01-01 15:39] VITALS: BMI 32.1
[2018-01-04] MEDS ORDERED: KETAMINE HCL 500 MG/10 ML VIAL ONE (06:54)
[2018-01-04 07:56] VITALS: TEMP 98
[2018-01-04 08:41] VITALS: BP 117/61; PULSE 61
== END 2018-01-04 08:50 | disposition home or self-care (01) ==
LOC: FECT 05:36
PROVIDERS: ATTEND Psychiatry & Neurology Psychiatry
PROC: GZB4ZZZ Other Electroconvulsive Therapy (ICD-10-PCS; principal; 2018-01-04 07:00)
DX: F33.2 Major depressive disorder, recurrent severe without psychotic features (principal)
CPT/HCPCS: 90870; 94760

== ENCOUNTER 2018-01-09 05:38 | Day surgery (SDC) | payer OTHER, BC ==
[2018-01-04 13:49] VITALS: BMI 32.1
[2018-01-09] MEDS ORDERED: KETAMINE HCL 500 MG/10 ML VIAL ONE (06:57)
[2018-01-09 08:01] VITALS: TEMP 98
[2018-01-09 08:45] VITALS: BP 118/66; PULSE 58
== END 2018-01-09 08:35 | disposition home or self-care (01) ==
LOC: FECT 05:38
PROVIDERS: ATTEND Psychiatry & Neurology Psychiatry
PROC: GZB4ZZZ Other Electroconvulsive Therapy (ICD-10-PCS; principal; 2018-01-09 07:45)
DX: F33.2 Major depressive disorder, recurrent severe without psychotic features (principal)
CPT/HCPCS: 90870; 94760

== ENCOUNTER 2018-01-11 06:03 | Day surgery (SDC) | payer OTHER, BC ==
[2018-01-04 13:56] VITALS: BMI 32.1
[2018-01-11] MEDS ORDERED: KETAMINE HCL 500 MG/10 ML VIAL ONE (07:32)
[2018-01-11 08:46] VITALS: TEMP 98.1
[2018-01-11 08:58] VITALS: BP 121/67; PULSE 61
== END 2018-01-11 09:00 | disposition home or self-care (01) ==
LOC: FECT 06:03
PROVIDERS: ATTEND Psychiatry & Neurology Psychiatry
PROC: GZB4ZZZ Other Electroconvulsive Therapy (ICD-10-PCS; principal; 2018-01-11 07:15)
DX: F33.2 Major depressive disorder, recurrent severe without psychotic features (principal)
CPT/HCPCS: 90870; 94760

== ENCOUNTER 2018-01-18 05:45 | Day surgery (SDC) | payer OTHER, BC ==
[2018-01-18 06:19] VITALS: BMI 32.1
[2018-01-18] MEDS ORDERED: KETAMINE HCL 500 MG/10 ML VIAL ONE (06:56)
[2018-01-18] MEDS ORDERED: LACTATED RINGERS SOLUTION 1,000 ML IV SCH (07:30)
[2018-01-18 08:05] VITALS: TEMP 96
[2018-01-18 08:57] VITALS: BP 104/61; PULSE 60
== END 2018-01-18 09:10 | disposition home or self-care (01) ==
LOC: FECT 05:45
PROVIDERS: ATTEND Psychiatry & Neurology Psychiatry
PROC: GZB4ZZZ Other Electroconvulsive Therapy (ICD-10-PCS; principal; 2018-01-18 08:00)
DX: F33.2 Major depressive disorder, recurrent severe without psychotic features (principal)
CPT/HCPCS: 90870; 94760

== ENCOUNTER 2018-01-25 05:48 | Day surgery (SDC) | payer OTHER, BC ==
[2018-01-25 07:31] VITALS: BMI 32.1
--- NOTE | 2018-01-25 07:34 | HP ---
Admitting History and Physical - Admission History of Present Illness: patient is a 67-year-old male with a past medical history of coronary artery disease (stent 2014), HTN, HLD, and bipolar disorder. patient presents for ECT , he has been undergoing ECT since 2016. His last ECT was 01/18/2018. Patient reports feeling well he reports a significant improvement of depressive symptoms since starting ECT. Patient denies any recent illnesses or hospitalizations. Of note, patient was recently started on lisinopril last month however the medication was discontinued secondary to cough. The patient was started on Norvasc 5 mg and denies any adverse reaction to the medication. Patient denies any suicidal homicidal ideation, visual or auditory hallucination. History Source: Patient Limitations to Obtaining History: No Limitations - Past Medical History Cardiovascular: Yes: HTN, [place] Psych: Yes: Anxiety, Bipolar, Depression - Smoking History Smoking history: Never smoked Have you smoked in the past 12 months: No - Alcohol/Substance Use Hx Alcohol Use: No History of Substance Use: reports: None - Social History Usual Living Arrangement: Yes: With Spouse ADL: Independent History of Recent Travel: No Home Medications - Allergies Allergies/Adverse Reactions: Allergies Allergy/AdvReac Type Severity Reaction Status Date / Time Penicillins Allergy Severe Hives Verified 01/04/18 13:45 - Home Medications Home Medications: Ambulatory Orders Aspirin [ASA -] 81 mg PO HS 04/13/16 Doxazosin Mesylate [Cardura Xl] 8 mg PO HS 04/13/16 Lamotrigine [Lamictal] 200 mg PO HS 04/13/16 Atorvastatin Ca [Lipitor] 80 mg PO HS 04/21/16 Venlafaxine HCl ER [Effexor Xr -] 375 mg PO DAILY 05/22/16 [place] Carbonate [Eskalith -] 600 mg PO HS 06/15/16 Cholecalciferol (Vitamin D3) [Vitamin D3] 1,000 unit PO DAILY 11/22/17 Multivit-Mins/Iron/Folic/Lycop [Centrum Men's Tablet] 1 each PO DAILY 11/22/17 Vitamin B Complex [Ultra B-100 Complex] 1 each PO DAILY 11/22/17 Dextroamphetamine/Amphetamine [Adderall 10 mg Tablet] 20 mg PO DAILY 11/29/17 Cariprazine HCl [Vraylar] 1.5 mg PO HS 01/01/18 Mirabegron [Myrbetriq] 50 mg PO DAILY 01/25/18 clonazePAM [Klonopin -] 0.5 mg PO DAILY 01/25/18 Family Disease History - Family Disease History Family History: Denies Review of Systems - Review of Systems Constitutional: reports: No Symptoms Eyes: reports: No Symptoms HENT: reports: No Symptoms Neck: reports: No Symptoms Cardiovascular: reports: No Symptoms Respiratory: reports: No Symptoms Gastrointestinal: reports: No Symptoms Genitourinary: reports: No Symptoms Musculoskeletal: reports: No Symptoms Integumentary: reports: No Symptoms Neurological: reports: No Symptoms Endocrine: reports: No Symptoms Hematology/Lymphatic: reports: No Symptoms Psychiatric: reports: No Symptoms Physical Examination Constitutional: Yes: Well Nourished, No Distress, Calm Eyes: Yes: WNL, Conjunctiva Clear, EOM Intact HENT: Yes: WNL, Atraumatic, Normocephalic Neck: Yes: WNL, Supple, Trachea Midline Cardiovascular: Yes: WNL, Regular Rate and Rhythm, S1, S2 Respiratory: Yes: WNL, Regular, CTA Bilaterally Gastrointestinal: Yes: WNL, Normal Bowel Sounds, Soft ...Rectal Exam: Yes: Deferred Renal/: Yes: WNL Musculoskeletal: Yes: WNL Extremities: Yes: WNL Edema: No Peripheral Pulses WNL: Yes Peripheral Pulses: Left Radial: 4+, Right Radial: 4+, Left Doralis Pedis: 3+, Right Dorsalis Pedis: 3+, Left Femoral: 3+, Right Femoral: 3+ Integumentary: Yes: WNL Neurological: Yes: WNL, Alert, Oriented ...Motor Strength: WNL Psychiatric: Yes: WNL, Alert, Oriented Labs: patient is a 68 y/o male that presents for ECT, labs and ekg reviewed patient is medically optimized for procedure nformed consent, risks/benefits to be obtained by Dr Ivory
[2018-01-25] MEDS ORDERED: KETAMINE HCL 500 MG/10 ML VIAL ONE (08:07)
[2018-01-25] MEDS ORDERED: PROMETHAZINE HCL 25 MG/1 ML VIAL IVPUSH PRN (09:06)
[2018-01-25] MEDS ORDERED: ONDANSETRON 4 MG/2 ML VIAL IVPUSH PRN (09:06)
[2018-01-25] MEDS ORDERED: ACETAMINOPHEN 325 MG TABLET (FP) PO PRN (09:06)
[2018-01-25] MEDS ORDERED: LACTATED RINGERS SOLUTION 1,000 ML IV SCH (09:15)
[2018-01-25 10:21] VITALS: TEMP 98.2
[2018-01-25 10:23] VITALS: BP 115/77; PULSE 56
== END 2018-01-25 09:25 | disposition home or self-care (01) ==
LOC: FECT 05:48
PROVIDERS: ATTEND Psychiatry & Neurology Psychiatry
PROC: GZB4ZZZ Other Electroconvulsive Therapy (ICD-10-PCS; principal; 2018-01-25 07:15)
DX: F33.2 Major depressive disorder, recurrent severe without psychotic features (principal)
CPT/HCPCS: 90870; 94760

== ENCOUNTER 2018-02-01 05:44 | Day surgery (SDC) | payer OTHER, BC ==
[2018-02-01 06:56] VITALS: BMI 29.7
[2018-02-01] MEDS ORDERED: KETAMINE HCL 500 MG/10 ML VIAL ONE (08:09)
[2018-02-01 09:08] VITALS: TEMP 98.1
[2018-02-01 09:35] VITALS: BP 122/74; PULSE 58
== END 2018-02-01 09:35 | disposition home or self-care (01) ==
LOC: FECT 05:44
PROVIDERS: ATTEND Psychiatry & Neurology Psychiatry
PROC: GZB4ZZZ Other Electroconvulsive Therapy (ICD-10-PCS; principal; 2018-02-01 08:00)
DX: F33.2 Major depressive disorder, recurrent severe without psychotic features (principal)
CPT/HCPCS: 90870; 94760

== ENCOUNTER 2018-02-08 05:44 | Day surgery (SDC) | payer OTHER, BC ==
[2018-02-08 07:10] VITALS: BMI 29.7
[2018-02-08] MEDS ORDERED: KETAMINE HCL 500 MG/10 ML VIAL ONE (07:48)
[2018-02-08] MEDS ORDERED: ACETAMINOPHEN 325 MG TABLET (FP) PO PRN (07:56)
[2018-02-08] MEDS ORDERED: PROMETHAZINE HCL 25 MG/1 ML VIAL IVPUSH PRN (07:56)
[2018-02-08] MEDS ORDERED: ONDANSETRON 4 MG/2 ML VIAL IVPUSH PRN (07:56)
[2018-02-08] MEDS ORDERED: LACTATED RINGERS SOLUTION 1,000 ML IV SCH (08:00)
[2018-02-08 09:03] VITALS: TEMP 98.2
[2018-02-08 09:09] LABS: BASO % 0.7 % (0-2.0); EOS % 2.2 % (0-4.5); HEMATOCRIT 38.5 % (35.4-49); HEMOGLOBIN 12.9 GM/dl (11.7-16.9); LYMPH % 26.5 % (8-40); MCHC 33.6 g/dl (32.0-35.9); MEAN CELL VOLUME 95.1 fl (80-96); MONO % 8.8 % (3.8-10.2); NEUT % 61.8 % (42.8-82.8); PLATELET COUNT 295 K/MM3 (134-434); RBC 4.04 M/mm3 (4.00-5.60); RDW 11.8 % (11.9-15.9); WHITE BLOOD COUNT 8.1 K/mm3 (4.0-10.8)
--- NOTE | 2018-02-08 09:31 | EKG ---
Test Reason : Blood Pressure : / mmHG Vent. Rate : 052 BPM Atrial Rate : 052 BPM P-R Int : 192 ms QRS Dur : 084 ms QT Int : 430 ms P-R-T Axes : 043 -17 015 degrees QTc Int : 399 ms SINUS BRADYCARDIA INFERIOR INFARCT (CITED ON OR BEFORE 07-MAY-2017) ABNORMAL ECG WHEN COMPARED WITH ECG OF 07-MAY-2017 06:13, NO SIGNIFICANT CHANGE WAS FOUND Confirmed by CORINA ONEAL MD ([id number]) on 02/08/2018 9:30:57 AM Referred By: Jayson Ivory Confirmed By:CORINA ONEAL MD
[2018-02-08 09:39] LABS: ALBUMIN 3.6 g/dl (3.5-5.0); ALK PHOS 60 U/L (32-92); ANION GAP 3 MMOL/L (8-16); BILIRUBIN,TOTAL 0.3 mg/dl (0.2-1.0); BLOOD UREA NITROGEN 16 mg/dl (7-18); CALCIUM 9.6 mg/dl (8.4-10.2); CHLORIDE 108 mmol/L (98-107); CO2 25 mmol/L (22-28); CREATININE 0.9 mg/dl (0.6-1.3); GLUCOSE,RANDOM 97 mg/dl (74-106); POTASSIUM 4.1 mmol/L (3.5-5.1); SGOT/AST 24 U/L (10-42); SGPT/ALT 24 U/L (10-40); SODIUM 136 mmol/L (136-145); TOT PROT 6.1 g/dl (6.4-8.3)
[2018-02-08 10:12] VITALS: BP 136/72; PULSE 58
== END 2018-02-08 09:30 | disposition home or self-care (01) ==
LOC: FECT 05:44
PROVIDERS: ATTEND Psychiatry & Neurology Psychiatry
PROC: GZB4ZZZ Other Electroconvulsive Therapy (ICD-10-PCS; principal; 2018-02-08 07:45)
DX: F33.2 Major depressive disorder, recurrent severe without psychotic features (principal)
CPT/HCPCS: 36415; 80053; 85025; 93005

== ENCOUNTER 2018-02-15 05:39 | Day surgery (SDC) | payer OTHER, BC ==
[2018-02-15 06:49] VITALS: BMI 31.0
[2018-02-15] MEDS ORDERED: KETAMINE HCL 500 MG/10 ML VIAL ONE (07:17)
[2018-02-15 08:26] VITALS: TEMP 97.6
[2018-02-15 09:16] VITALS: BP 119/65; PULSE 59
== END 2018-02-15 09:20 | disposition home or self-care (01) ==
LOC: FECT 05:39
PROVIDERS: ATTEND Psychiatry & Neurology Psychiatry
PROC: GZB4ZZZ Other Electroconvulsive Therapy (ICD-10-PCS; principal; 2018-02-15 07:15)
DX: F33.2 Major depressive disorder, recurrent severe without psychotic features (principal)
CPT/HCPCS: 90870; 94760

== ENCOUNTER 2018-02-22 05:40 | Day surgery (SDC) | payer OTHER, BC ==
[2018-02-18 11:58] VITALS: BMI 31.0
[2018-02-22 08:48] VITALS: TEMP 98.2
[2018-02-22 09:16] VITALS: BP 132/74; PULSE 62
--- NOTE | 2018-02-22 09:27 | HP ---
Admitting History and Physical - Admission History of Present Illness: patient is a 67-year-old male with a past medical history of coronary artery disease (stent 2015), hypertension, hyperlipidemia, and bipolar disorder. Patient presents for ECT, he has been undergoing ECT since 2016 his last ECT was 02/15/2018. Patient reports a significant improvement and depressive symptoms since starting ECT. He denies any changes to her medications. Patient reports compliance with prescribed medications. He denies any recent illnesses or hospitalizations. Patient denies any suicidal homicidal ideation, visual or auditory hallucinations. History Source: Patient Limitations to Obtaining History: No Limitations - Past Medical History Cardiovascular: Yes: HTN, [place] Psych: Yes: Anxiety, Bipolar, Depression - Smoking History Smoking history: Never smoked Have you smoked in the past 12 months: No - Alcohol/Substance Use Hx Alcohol Use: No History of Substance Use: reports: None - Social History Usual Living Arrangement: Yes: With Spouse ADL: Independent History of Recent Travel: No Home Medications - Allergies Allergies/Adverse Reactions: Allergies Allergy/AdvReac Type Severity Reaction Status Date / Time Penicillins Allergy Severe Hives Verified 02/01/18 06:58 - Home Medications Home Medications: Ambulatory Orders Aspirin [ASA -] 81 mg PO HS 04/13/16 Doxazosin Mesylate [Cardura Xl] 8 mg PO HS 04/13/16 Lamotrigine [Lamictal] 200 mg PO HS 04/13/16 Atorvastatin Ca [Lipitor] 80 mg PO HS 04/21/16 Venlafaxine HCl ER [Effexor Xr -] 375 mg PO DAILY 05/22/16 [place] Carbonate [Eskalith -] 600 mg PO HS 06/15/16 Cholecalciferol (Vitamin D3) [Vitamin D3] 1,000 unit PO DAILY 11/22/17 Multivit-Mins/Iron/Folic/Lycop [Centrum Men's Tablet] 1 each PO DAILY 11/22/17 Vitamin B Complex [Ultra B-100 Complex] 1 each PO DAILY 11/22/17 Dextroamphetamine/Amphetamine [Adderall 10 mg Tablet] 20 mg PO DAILY 11/29/17 Cariprazine HCl [Vraylar] 1.5 mg PO HS 01/01/18 Mirabegron [Myrbetriq] 50 mg PO DAILY 01/25/18 clonazePAM [Klonopin -] 0.5 mg PO DAILY 01/25/18 Amlodipine Besylate [Norvasc -] 5 mg PO DAILY 02/15/18 Family Disease History - Family Disease History Family History: Denies Review of Systems - Review of Systems Constitutional: reports: No Symptoms Eyes: reports: No Symptoms HENT: reports: No Symptoms Neck: reports: No Symptoms Cardiovascular: reports: No Symptoms Respiratory: reports: No Symptoms Gastrointestinal: reports: No Symptoms Genitourinary: reports: No Symptoms Musculoskeletal: reports: No Symptoms Integumentary: reports: No Symptoms Neurological: reports: No Symptoms Endocrine: reports: No Symptoms Hematology/Lymphatic: reports: No Symptoms Psychiatric: reports: No Symptoms Physical Examination Vital Signs: Vital Signs Temperature 98.2 F 02/22/18 09:17 Pulse Rate 62 02/22/18 09:17 Respiratory Rate 18 02/22/18 09:17 Blood Pressure 132/74 02/22/18 09:17 O2 Sat by Pulse Oximetry (%) 98 02/22/18 09:10 Constitutional: Yes: Well Nourished, No Distress, Calm Eyes: Yes: WNL, Conjunctiva Clear, EOM Intact HENT: Yes: WNL, Atraumatic, Normocephalic Neck: Yes: WNL, Supple, Trachea Midline Cardiovascular: Yes: WNL, Regular Rate and Rhythm, S1, S2 Respiratory: Yes: WNL, Regular, CTA Bilaterally Gastrointestinal: Yes: WNL, Normal Bowel Sounds, Soft ...Rectal Exam: Yes: Deferred Renal/: Yes: WNL Musculoskeletal: Yes: WNL Extremities: Yes: WNL Edema: No Peripheral Pulses WNL: Yes Peripheral Pulses: Left Radial: 4+, Right Radial: 4+, Left Doralis Pedis: 3+, Right Dorsalis Pedis: 3+, Left Femoral: 3+, Right Femoral: 3+ Integumentary: Yes: WNL Neurological: Yes: WNL, Alert, Oriented ...Motor Strength: WNL Psychiatric: Yes: WNL, Alert, Oriented Labs: reviewed 02/08/18` Imaging - Results EKG: Image Reviewed, Other (nsr septal infarct (unchanged)) Assessment/Plan patient is a 68 y/o male, that presents for ect, labs and ekg reviewed, patient is medically optimized for procedure informed consent, risks/benefits to be obtained by Dr Ivory
== END 2018-02-22 09:18 | disposition home or self-care (01) ==
LOC: FECT 05:40
PROVIDERS: ATTEND Psychiatry & Neurology Psychiatry
PROC: GZB4ZZZ Other Electroconvulsive Therapy (ICD-10-PCS; principal; 2018-02-22 07:45)
DX: F33.2 Major depressive disorder, recurrent severe without psychotic features (principal)
CPT/HCPCS: 90870; 94760

== ENCOUNTER 2018-03-01 05:46 | Day surgery (SDC) | payer OTHER, BC ==
[2018-02-22 17:28] VITALS: BMI 31.0
[2018-03-01] MEDS ORDERED: KETAMINE HCL 500 MG/10 ML VIAL ONE (06:58)
[2018-03-01 07:59] VITALS: TEMP 97.7
[2018-03-01 08:54] VITALS: BP 101/56; PULSE 59
== END 2018-03-01 09:20 | disposition home or self-care (01) ==
LOC: FECT 05:46
PROVIDERS: ATTEND Psychiatry & Neurology Psychiatry
PROC: GZB4ZZZ Other Electroconvulsive Therapy (ICD-10-PCS; principal; 2018-03-01 08:00)
DX: F33.2 Major depressive disorder, recurrent severe without psychotic features (principal)
CPT/HCPCS: 90870; 94760

== ENCOUNTER 2018-03-12 06:23 | Day surgery (SDC) | payer OTHER, BC ==
[2018-03-12 07:30] VITALS: BMI 31.0
[2018-03-12] MEDS ORDERED: KETAMINE HCL 500 MG/10 ML VIAL ONE (08:31)
[2018-03-12 09:53] VITALS: BP 123/66; PULSE 58; TEMP 98.7
== END 2018-03-12 09:47 | disposition home or self-care (01) ==
LOC: FECT 06:23
PROVIDERS: ATTEND Psychiatry & Neurology Psychiatry
PROC: GZB4ZZZ Other Electroconvulsive Therapy (ICD-10-PCS; principal; 2018-03-12 08:00)
DX: F33.2 Major depressive disorder, recurrent severe without psychotic features (principal)
CPT/HCPCS: 90870; 94760

== ENCOUNTER 2018-03-26 05:43 | Day surgery (SDC) | payer OTHER, BC ==
[2018-03-26] MEDS ORDERED: ONDANSETRON 4 MG/2 ML VIAL IVPUSH PRN (07:18)
--- NOTE | 2018-03-26 07:19 | HP ---
CHIEF COMPLAINT: Major Depressive Disorder PCP: Miles Sutton Psych: Miles Dodge Cardiology: Miles Mayer HISTORY OF PRESENT ILLNESS: This is a 67 year-old male with a PMH significant for HTN, HLD, CAD s/p stent, bipolar disorder, and major depressive disorder. He has been undergoing ECT since 2015. He presents today for ECT. Recent events: No change in medications Recent Travel: No PAST MEDICAL HISTORY: Hypertension Hyperlipidemia Coronary artery disease Bipolar disorder Major depressive disorder PAST SURGICAL HISTORY: Coronary stent 2014 Left hip replacement 2004 Social History: independent, lives with spouse Smoking: never Alcohol: no Drugs: no Family History: Allergies Penicillins Allergy (Severe, Verified 02/01/18 06:58) Hives HOME MEDICATIONS: Home Medications Medication Instructions Recorded Aspirin [ASA -] 81 mg PO HS 04/13/16 Doxazosin Mesylate [Cardura Xl] 8 mg PO HS 04/13/16 Lamotrigine [Lamictal] 200 mg PO HS 04/13/16 Atorvastatin Ca [Lipitor] 80 mg PO HS 04/21/16 Venlafaxine HCl ER [Effexor Xr -] 375 mg PO DAILY 05/22/16 [place] Carbonate [Eskalith -] 600 mg PO HS 06/15/16 Cholecalciferol (Vitamin D3) 1,000 unit PO DAILY 11/22/17 [Vitamin D3] Multivit-Mins/Iron/Folic/Lycop 1 each PO DAILY 11/22/17 [Centrum Men's Tablet] Vitamin B Complex [Ultra B-100 1 each PO DAILY 11/22/17 Complex] Dextroamphetamine/Amphetamine 20 mg PO DAILY 11/29/17 [Adderall 10 mg Tablet] Cariprazine HCl [Vraylar] 1.5 mg PO HS 01/01/18 Mirabegron [Myrbetriq] 50 mg PO DAILY 01/25/18 clonazePAM [Klonopin -] 0.5 mg PO DAILY 01/25/18 Amlodipine Besylate [Norvasc -] 5 mg PO DAILY 02/15/18 REVIEW OF SYSTEMS CONSTITUTIONAL: Absent: fever, chills, diaphoresis, generalized weakness, malaise, loss of appetite, weight change HEENT: Absent: rhinorrhea, nasal congestion, throat pain, throat swelling, difficulty swallowing, mouth swelling, ear pain, eye pain, visual changes CARDIOVASCULAR: Absent: chest pain, syncope, palpitations, irregular heart rate, lightheadedness , peripheral edema RESPIRATORY: Absent: cough, shortness of breath, dyspnea with exertion, orthopnea, wheezing, stridor, hemoptysis GASTROINTESTINAL: Absent: abdominal pain, abdominal distension, nausea, vomiting, diarrhea, constipation, melena, hematochezia GENITOURINARY: Absent: dysuria, frequency, urgency, hesitancy, hematuria, flank pain, genital pain MUSCULOSKELETAL: Absent: myalgia, arthralgia, joint swelling, back pain, neck pain SKIN: Absent: rash, itching, pallor HEMATOLOGIC/IMMUNOLOGIC: Absent: easy bleeding, easy bruising, lymphadenopathy, frequent infections ENDOCRINE: Absent: unexplained weight gain, unexplained weight loss, heat intolerance, cold intolerance NEUROLOGIC: Absent: headache, focal weakness or paresthesias, dizziness, unsteady gait, seizure, mental status changes, bladder or bowel incontinence PSYCHIATRIC: Absent: anxiety, depression, suicidal or homicidal ideation, hallucinations. PHYSICAL EXAMINATION Vital Signs Temperature 97.5 F L 03/26/18 07:16 Pulse Rate 52 L 03/26/18 07:16 Respiratory Rate 18 03/26/18 07:16 Blood Pressure 124/72 03/26/18 07:16 O2 Sat by Pulse Oximetry (%) 95 03/26/18 07:16 GENERAL: Awake, alert, and fully oriented, in no acute distress. HEAD: Normal with no signs of trauma. EYES: Pupils equal, round and reactive to light, extraocular movements intact, sclera anicteric, conjunctiva clear. No lid lag. LUNGS: Breath sounds equal, clear to auscultation bilaterally. No wheezes, and no crackles. No accessory muscle use. HEART: Regular rate and rhythm, normal S1 and S2 without murmur, rub or gallop. ABDOMEN: Soft, nontender, not distended, normoactive bowel sounds, no guarding, no rebound, no masses. No hepatomegaly or splenomegaly. MUSCULOSKELETAL: Normal range of motion at all joints. No bony deformities or tenderness. No CVA tenderness. UPPER EXTREMITIES: 2+ pulses, warm, well-perfused. No cyanosis. No clubbing. No peripheral edema. LOWER EXTREMITIES: 2+ pulses, warm, well-perfused. No calf tenderness. No peripheral edema. NEUROLOGICAL: Cranial nerves II-XII intact. Normal speech. Normal gait. ASSESSMENT/PLAN: This is a 67 year-old male with a PMH significant for HTN, HLD, CAD s/p stent, bipolar disorder, and major depressive disorder. He presents today for ECT. Cardiac --Hypertension --BP well-controlled --did not take amlodipine this morning --Hyperlipidemia --on statin therapy --Coronary artery disease s/p stent --compliant with daily ASA 81mg --Revised Cardiac Risk Index for Pre-Operative Risk: 1 point, 0.9% risk of major cardiac event Pulmonary --no pulmonary history Neurological --no neurological or neurosurgical history; no history of trauma Anesthesia --no known history of problems with anesthesia ECT is a low risk procedure. The relative benefits of the planned procedure outweigh the relative risks for this patient at this time. Visit type - Emergency Visit Emergency Visit: No - New Patient This patient is new to me today: Yes Date on this admission: 03/26/18 - Critical Care Critical Care patient: No
[2018-03-26 07:30] VITALS: BMI 31.0
[2018-03-26] MEDS ORDERED: KETAMINE HCL 500 MG/10 ML VIAL ONE (07:57)
[2018-03-26 08:57] VITALS: TEMP 98.8
[2018-03-26 09:24] VITALS: BP 112/62; PULSE 55
== END 2018-03-26 09:30 | disposition home or self-care (01) ==
LOC: FECT 05:43
PROVIDERS: ATTEND Psychiatry & Neurology Psychiatry
PROC: GZB4ZZZ Other Electroconvulsive Therapy (ICD-10-PCS; principal; 2018-03-26 07:15)
DX: F32.9 Major depressive disorder, single episode, unspecified (principal)
CPT/HCPCS: 90870; 94760

== ENCOUNTER 2018-04-09 05:50 | Day surgery (SDC) | payer OTHER, BC ==
[2018-03-26 15:06] VITALS: BMI 31.0
[2018-04-09] MEDS ORDERED: KETAMINE HCL 500 MG/10 ML VIAL ONE (08:26)
[2018-04-09 10:49] VITALS: PULSE 84; TEMP 98
[2018-04-09 10:51] VITALS: BP 136/63
== END 2018-04-09 10:00 | disposition home or self-care (01) ==
LOC: FECT 05:50
PROVIDERS: ATTEND Psychiatry & Neurology Psychiatry
PROC: GZB4ZZZ Other Electroconvulsive Therapy (ICD-10-PCS; principal; 2018-04-09 07:00)
DX: F33.2 Major depressive disorder, recurrent severe without psychotic features (principal)
CPT/HCPCS: 90870; 94760

== ENCOUNTER 2018-04-25 05:50 | Day surgery (SDC) | payer OTHER, BC ==
[2018-04-25 06:40] VITALS: BMI 31.0
[2018-04-25] MEDS ORDERED: KETAMINE HCL 500 MG/10 ML VIAL ONE (07:03)
[2018-04-25 08:09] VITALS: TEMP 97.9
[2018-04-25 09:11] VITALS: BP 117/73; PULSE 72
== END 2018-04-25 09:13 | disposition home or self-care (01) ==
LOC: FECT 05:50
PROVIDERS: ATTEND Psychiatry & Neurology Psychiatry
PROC: GZB4ZZZ Other Electroconvulsive Therapy (ICD-10-PCS; principal; 2018-04-25 07:15)
DX: F32.9 Major depressive disorder, single episode, unspecified (principal)
CPT/HCPCS: 90870; 94760

== ENCOUNTER 2018-05-17 05:41 | Day surgery (SDC) | payer OTHER, BC ==
[2018-05-17 07:21] VITALS: TEMP 98.2; BMI 31.0
--- NOTE | 2018-05-17 07:36 | HP ---
CHIEF COMPLAINT: Major Depressive Disorder PCP: Miles Sutton Psych: Miles Dodge Cardiology: Miles Mayer HISTORY OF PRESENT ILLNESS: This is a 67 year-old male with a PMH significant for HTN, HLD, CAD s/p stent, bipolar disorder, and major depressive disorder. He has been undergoing ECT since 2015. He presents today for ECT. Recent events: None Yes change in medication doses Recent Travel: No Recent Travel:No PAST MEDICAL HISTORY: Hypertension Hyperlipidemia Coronary artery disease Bipolar disorder Major depressive disorder PAST SURGICAL HISTORY: Coronary stent 2014 Left hip replacement 2004 Social History: Smoking:No Alcohol:No Drugs:No Family History: Allergies Penicillins Allergy (Severe, Verified 03/26/18 15:03) Hives HOME MEDICATIONS: Home Medications Medication Instructions Recorded Aspirin [ASA -] 81 mg PO HS 04/13/16 Doxazosin Mesylate [Cardura Xl] 8 mg PO HS 04/13/16 Lamotrigine [Lamictal] 200 mg PO HS 04/13/16 Atorvastatin Ca [Lipitor] 80 mg PO HS 04/21/16 [place] Carbonate [Eskalith -] 300 mg PO HS 06/15/16 Cholecalciferol (Vitamin D3) 1,000 unit PO DAILY 11/22/17 [Vitamin D3] Multivit-Mins/Iron/Folic/Lycop 1 each PO DAILY 11/22/17 [Centrum Men's Tablet] Vitamin B Complex [Ultra B-100 1 each PO DAILY 11/22/17 Complex] Dextroamphetamine/Amphetamine 20 mg PO DAILY 11/29/17 [Adderall 10 mg Tablet] Cariprazine HCl [Vraylar] 3 mg PO HS 01/01/18 Mirabegron [Myrbetriq] 50 mg PO DAILY 01/25/18 clonazePAM [Klonopin -] 0.5 mg PO Evening 01/25/18 Amlodipine Besylate [Norvasc -] 5 mg PO DAILY 02/15/18 Venlafaxine HCl ER [Effexor Xr -] 300 mg PO DAILY 05/17/18 REVIEW OF SYSTEMS CONSTITUTIONAL: Absent: fever, chills, diaphoresis, generalized weakness, malaise, loss of appetite, weight change HEENT: Absent: rhinorrhea, nasal congestion, throat pain, throat swelling, difficulty swallowing, mouth swelling, ear pain, eye pain, visual changes CARDIOVASCULAR: Absent: chest pain, syncope, palpitations, irregular heart rate, lightheadedness , peripheral edema RESPIRATORY: Absent: cough, shortness of breath, dyspnea with exertion, orthopnea, wheezing, stridor, hemoptysis GASTROINTESTINAL: Absent: abdominal pain, abdominal distension, nausea, vomiting, diarrhea, constipation, melena, hematochezia GENITOURINARY: Absent: dysuria, frequency, urgency, hesitancy, hematuria, flank pain, genital pain MUSCULOSKELETAL: Absent: myalgia, arthralgia, joint swelling, back pain, neck pain SKIN: Absent: rash, itching, pallor HEMATOLOGIC/IMMUNOLOGIC: Absent: easy bleeding, easy bruising, lymphadenopathy, frequent infections ENDOCRINE: Absent: unexplained weight gain, unexplained weight loss, heat intolerance, cold intolerance NEUROLOGIC: Absent: headache, focal weakness or paresthesias, dizziness, unsteady gait, seizure, mental status changes, bladder or bowel incontinence PSYCHIATRIC: Absent: anxiety, depression, suicidal or homicidal ideation, hallucinations. PHYSICAL EXAMINATION Vital Signs - 24 hr 05/17/18 07:13 Temperature 98.2 F Pulse Rate 56 L Respiratory 18 Rate Blood Pressure 140/74 O2 Sat by Pulse 97 Oximetry (%) GENERAL: Awake, alert, and fully oriented, in no acute distress. HEAD: Normal with no signs of trauma. EYES: Pupils equal, round and reactive to light, extraocular movements intact, sclera anicteric, conjunctiva clear. No lid lag. EARS, NOSE, THROAT: Ears normal, nares patent, oropharynx clear without exudates. Moist mucous membranes. NECK: Normal range of motion, supple without lymphadenopathy, JVD, or masses. LUNGS: Breath sounds equal, clear to auscultation bilaterally. No wheezes, and no crackles. No accessory muscle use. HEART: Regular rate and rhythm, normal S1 and S2 without murmur, rub or gallop. ABDOMEN: Soft, nontender, not distended, normoactive bowel sounds, no guarding, no rebound, no masses. No hepatomegaly or splenomegaly. MUSCULOSKELETAL: Normal range of motion at all joints. No bony deformities or tenderness. No CVA tenderness. UPPER EXTREMITIES: 2+ pulses, warm, well-perfused. No cyanosis. No clubbing. No peripheral edema. LOWER EXTREMITIES: 2+ pulses, warm, well-perfused. No calf tenderness. No peripheral edema. NEUROLOGICAL: Cranial nerves II-XII intact. Normal speech. Normal gait. PSYCHIATRIC: Cooperative. Good eye contact. Appropriate mood and affect. SKIN: Warm, dry, normal turgor, no rashes or lesions noted, normal capillary refill. ASSESSMENT/PLAN: This is a 67 year-old male with a PMH significant for HTN, HLD, CAD s/p stent, bipolar disorder, and major depressive disorder. He presents today for ECT. *Coronary artery disease with s/p stent - will cont on compliant ASA, Statin,reports BB taken off by cardiology *Hypertension-BP well-controlled - will cont on home dose Norvasc *Hyperlipidemia -will cont on statin therapy * Major Depressive Disorder - will cont on home meds - ECT as scheduled --Revised Cardiac Risk Index for Pre-Operative Risk: 1 point, 0.9% risk of major cardiac event *Pulmonary -no pulmonary history *Neurological -no neurological or neurosurgical history; no history of trauma Anesthesia -no known history of problems with anesthesia Optimized for a low risk ECT procedure. The relative benefits of the planned procedure outweigh the relative risks for this patient at this time. Visit type - Emergency Visit Emergency Visit: No - New Patient This patient is new to me today: No - Critical Care Critical Care patient: No
[2018-05-17] MEDS ORDERED: KETAMINE HCL SYRINGES 150 MG/3 ML VIAL ONE (07:49)
[2018-05-17 08:43] VITALS: BP 133/75; PULSE 64
== END 2018-05-17 09:15 | disposition home or self-care (01) ==
LOC: FECT 05:41
PROVIDERS: ATTEND Psychiatry & Neurology Psychiatry
PROC: GZB4ZZZ Other Electroconvulsive Therapy (ICD-10-PCS; principal; 2018-05-17 07:00)
DX: F33.2 Major depressive disorder, recurrent severe without psychotic features (principal)
CPT/HCPCS: 90870; 94760

== ENCOUNTER → 2018-06-14 | Day surgery (SDC) | payer OTHER, BC ==
[~2018-06-14] MED LIST changes: -KETAMINE HCL 500 MG/10 ML VIAL ONE; +KETAMINE HCL SYRINGES 150 MG/3 ML ONE
[2018-06-14 06:57] VITALS: BMI 31.1
[2018-06-14 08:51] VITALS: BP 122/78; PULSE 76; TEMP 98.6
== END | disposition home or self-care (01) ==
LOC: FECT 05:42
PROVIDERS: ATTEND Psychiatry & Neurology Psychiatry
PROC: GZB4ZZZ Other Electroconvulsive Therapy (ICD-10-PCS; principal; 2018-06-14 07:15)
DX: F33.2 Major depressive disorder, recurrent severe without psychotic features (principal)
CPT/HCPCS: 90870; 94760

== ENCOUNTER 2018-07-12 05:44 | Day surgery (SDC) | payer OTHER, BC ==
[2018-07-12 07:29] VITALS: BMI 31.0
[2018-07-12] MEDS ORDERED: KETAMINE HCL SYRINGES 150 MG/3 ML ONE (08:31)
--- NOTE | 2018-07-12 08:40 | HP ---
CHIEF COMPLAINT: Major Depressive Disorder PCP: Miles Sutton Psych: Miles Dodge Cardiology: Miles Mayer HISTORY OF PRESENT ILLNESS: This is a 67 year-old male with a PMH significant for HTN, HLD, CAD s/p stent, bipolar disorder, and major depressive disorder. He has been undergoing ECT since 2015. He presents today for ECT. Recent events: * None reported Recent Travel: No Recent Travel:No PAST MEDICAL HISTORY: Hypertension Hyperlipidemia Coronary artery disease Bipolar disorder Major depressive disorder PAST SURGICAL HISTORY: Coronary stent 2014 Left hip replacement 2004 Social History: Smoking:No Alcohol:No Drugs:No Allergies Penicillins Allergy (Severe, Verified 03/26/18 15:03) Hives HOME MEDICATIONS: Home Medications Medication Instructions Recorded Aspirin [ASA -] 81 mg PO HS 04/13/16 Doxazosin Mesylate [Cardura Xl] 8 mg PO HS 04/13/16 Lamotrigine [Lamictal] 200 mg PO HS 04/13/16 Atorvastatin Ca [Lipitor] 80 mg PO HS 04/21/16 [place] Carbonate [Eskalith -] 300 mg PO HS 06/15/16 Cholecalciferol (Vitamin D3) 1,000 unit PO HS 11/22/17 [Vitamin D3] Multivit-Mins/Iron/Folic/Lycop 1 each PO HS 11/22/17 [Centrum Men's Tablet] Vitamin B Complex [Ultra B-100 1 each PO HS 11/22/17 Complex] Dextroamphetamine/Amphetamine 20 mg PO DAILY 11/29/17 [Adderall 10 mg Tablet] Cariprazine HCl [Vraylar] 3 mg PO HS 01/01/18 Mirabegron [Myrbetriq] 50 mg PO DAILY 01/25/18 clonazePAM [Klonopin -] 0.5 mg PO HS 01/25/18 Amlodipine Besylate [Norvasc -] 5 mg PO DAILY 02/15/18 Venlafaxine HCl ER [Effexor Xr -] 300 mg PO DAILY 05/17/18 REVIEW OF SYSTEMS CONSTITUTIONAL: Absent: fever, chills, diaphoresis, generalized weakness, malaise, loss of appetite, weight change HEENT: Absent: rhinorrhea, nasal congestion, throat pain, throat swelling, difficulty swallowing, mouth swelling, ear pain, eye pain, visual changes CARDIOVASCULAR: Absent: chest pain, syncope, palpitations, irregular heart rate, lightheadedness , peripheral edema RESPIRATORY: Absent: cough, shortness of breath, dyspnea with exertion, orthopnea, wheezing, stridor, hemoptysis GASTROINTESTINAL: Absent: abdominal pain, abdominal distension, nausea, vomiting, diarrhea, constipation, melena, hematochezia GENITOURINARY: Absent: dysuria, frequency, urgency, hesitancy, hematuria, flank pain, genital pain MUSCULOSKELETAL: Absent: myalgia, arthralgia, joint swelling, back pain, neck pain SKIN: Absent: rash, itching, pallor HEMATOLOGIC/IMMUNOLOGIC: Absent: easy bleeding, easy bruising, lymphadenopathy, frequent infections ENDOCRINE: Absent: unexplained weight gain, unexplained weight loss, heat intolerance, cold intolerance NEUROLOGIC: Absent: headache, focal weakness or paresthesias, dizziness, unsteady gait, seizure, mental status changes, bladder or bowel incontinence PHYSICAL EXAMINATION Vital Signs - 24 hr 07/12/18 07:25 Temperature 98.1 F Pulse Rate 56 L Respiratory 18 Rate Blood Pressure 139/75 O2 Sat by Pulse 99 Oximetry (%) GENERAL: Awake, alert, and fully oriented, in no acute distress. HEAD: Normal with no signs of trauma. EYES: Pupils equal, round and reactive to light, sclera anicteric, conjunctiva clear. LUNGS: Breath sounds equal, clear to auscultation bilaterally. No wheezes, and no crackles. No accessory muscle use. HEART: Regular rate and rhythm, normal S1 and S2 ABDOMEN: Soft, nontender, not distended MUSCULOSKELETAL: Normal range of motion at all joints. No bony deformities or tenderness. No CVA tenderness. UPPER EXTREMITIES: 2+ pulses, warm, well-perfused. No cyanosis. No clubbing. No peripheral edema. LOWER EXTREMITIES: 2+ pulses, warm, well-perfused. No calf tenderness. No peripheral edema. NEUROLOGICAL: Cranial nerves II-XII intact. Normal speech. ASSESSMENT/PLAN: This is a 67 year-old male with a PMH significant for HTN, HLD, CAD s/p stent, bipolar disorder, and major depressive disorder. He presents today for ECT. Cardiac --no cardiac history --Revised Cardiac Risk Index for Pre-Operative Risk: 0 points, 0.4% risk of major cardiac event Pulmonary --no pulmonary history Neurological --no neurological or neurosurgical history; no history of trauma Anesthesia --no reported problems with anesthesia ECT is a low risk procedure. The relative benefits of the planned procedure outweigh the relative risks for this patient at this time. Visit type - Emergency Visit Emergency Visit: No - New Patient This patient is new to me today: Yes Date on this admission: 07/12/18 - Critical Care Critical Care patient: No
[2018-07-12 09:22] VITALS: TEMP 97.7
[2018-07-12 09:43] VITALS: BP 112/71; PULSE 68
== END 2018-07-12 09:47 | disposition home or self-care (01) ==
LOC: FECT 05:44
PROVIDERS: ATTEND Psychiatry & Neurology Psychiatry
PROC: GZB4ZZZ Other Electroconvulsive Therapy (ICD-10-PCS; principal; 2018-07-12 07:00)
DX: F32.9 Major depressive disorder, single episode, unspecified (principal)
CPT/HCPCS: 90870; 94760

== ENCOUNTER 2018-08-09 05:44 | Day surgery (SDC) | payer OTHER, BC ==
[2018-08-09 06:44] VITALS: BMI 31.9
[2018-08-09] MEDS ORDERED: KETAMINE HCL SYRINGES 150 MG/3 ML ONE (07:31)
--- NOTE | 2018-08-09 07:38 | HP ---
Admitting History and Physical - Primary Care Physician PCP: Gurdeep Salomon V - Admission Chief Complaint: Came for ECT History of Present Illness: 68 year-old male with a PMH significant for HTN, HLD, CAD s/p stent, bipolar disorder, and major depressive disorder. He has been undergoing ECT since 2016. currently on maintenance therapy once a month ECT without any complication, denies any c/o chest pain SOB or Palpitation, today for ECT. PCP: Miles Sutton Psych: Miles Dodge Cardiology: Miles Mayer History Source: Patient - Past Medical History Cardiovascular: Yes: HTN, Hyperlipdemia, NM Psych: Yes: Anxiety, Bipolar, Depression - Past Surgical History Past Surgical History: Yes: Joint Replacement - Smoking History Smoking history: Never smoked Have you smoked in the past 12 months: No - Alcohol/Substance Use Hx Alcohol Use: No History of Substance Use: reports: None - Social History ADL: Independent History of Recent Travel: No Home Medications - Allergies Allergies/Adverse Reactions: Allergies Allergy/AdvReac Type Severity Reaction Status Date / Time Penicillins Allergy Severe Hives Verified 08/09/18 06:33 - Home Medications Home Medications: Ambulatory Orders Aspirin [ASA -] 81 mg PO HS 04/13/16 Doxazosin Mesylate [Cardura Xl] 8 mg PO HS 04/13/16 Lamotrigine [Lamictal] 200 mg PO HS 04/13/16 Atorvastatin Ca [Lipitor] 80 mg PO HS 04/21/16 [place] Carbonate [Eskalith -] 300 mg PO HS 06/15/16 Cholecalciferol (Vitamin D3) [Vitamin D3] 1,000 unit PO HS 11/22/17 Multivit-Mins/Iron/Folic/Lycop [Centrum Men's Tablet] 1 each PO DAILY 11/22/17 Vitamin B Complex [Ultra B-100 Complex] 1 each PO HS 11/22/17 Dextroamphetamine/Amphetamine [Adderall 10 mg Tablet] 20 mg PO DAILY 11/29/17 Mirabegron [Myrbetriq] 50 mg PO DAILY 01/25/18 clonazePAM [Klonopin -] 0.5 mg PO HS 01/25/18 Amlodipine Besylate [Norvasc -] 5 mg PO DAILY 02/15/18 Venlafaxine HCl ER [Effexor Xr -] 300 mg PO DAILY 05/17/18 Family Disease History - Family Disease History Family History: Unremarkable Review of Systems Findings/Remarks: CONSTITUTIONAL: Absent: fever, chills, diaphoresis, generalized weakness, malaise, loss of appetite, weight change HEENT: Absent: rhinorrhea, nasal congestion, throat pain, throat swelling, difficulty swallowing, mouth swelling, ear pain, eye pain, visual changes CARDIOVASCULAR: Absent: chest pain, syncope, palpitations, irregular heart rate, lightheadedness , peripheral edema RESPIRATORY: Absent: cough, shortness of breath, dyspnea with exertion, orthopnea, wheezing, stridor, hemoptysis GASTROINTESTINAL: Absent: abdominal pain, abdominal distension, nausea, vomiting, diarrhea, constipation, melena, hematochezia GENITOURINARY: Absent: dysuria, frequency, urgency, hesitancy, hematuria, flank pain, genital pain MUSCULOSKELETAL: Absent: myalgia, arthralgia, joint swelling, back pain, neck pain SKIN: Absent: rash, itching, pallor HEMATOLOGIC/IMMUNOLOGIC: Absent: easy bleeding, easy bruising, lymphadenopathy, frequent infections ENDOCRINE: Absent: unexplained weight gain, unexplained weight loss, heat intolerance, cold intolerance NEUROLOGIC: Absent: headache, focal weakness or paresthesias, dizziness, unsteady gait, seizure, mental status changes, bladder or bowel incontinence Physical Examination Vital Signs: Vital Signs Temperature 98.6 F 08/09/18 06:41 Pulse Rate 60 08/09/18 06:41 Respiratory Rate 16 08/09/18 06:41 Blood Pressure 139/74 08/09/18 06:41 O2 Sat by Pulse Oximetry (%) 95 08/09/18 06:41 GENERAL: Awake, alert, and fully oriented, in no acute distress. HEAD: Normal with no signs of trauma. EYES: Pupils equal, round and reactive to light, sclera anicteric, conjunctiva clear. LUNGS: Breath sounds equal, clear to auscultation bilaterally. No wheezes, and no crackles. No accessory muscle use. HEART: Regular rate and rhythm, normal S1 and S2 ABDOMEN: Soft, nontender, not distended MUSCULOSKELETAL: Normal range of motion at all joints. No bony deformities or tenderness. No CVA tenderness. UPPER EXTREMITIES: 2+ pulses, warm, well-perfused. No cyanosis. No clubbing. No peripheral edema. LOWER EXTREMITIES: 2+ pulses, warm, well-perfused. No calf tenderness. No peripheral edema. NEUROLOGICAL: Cranial nerves II-XII intact. Normal speech. Labs: Recent test and Physical was performed at Cardiology office 2 wks ago was reported normal Problem List - Problems (1) HTN (hypertension) Assessment/Plan: Well controlled cont current home meds Code(s): I10 - ESSENTIAL (PRIMARY) HYPERTENSION (2) CAD (coronary artery disease) Assessment/Plan: s/P stent unlimited exercise tolerance asymptomatic, F/U with Emergency Department Technician recent Check up was 2 wks ago cont home meds Code(s): I25.10 - ATHSCL HEART DISEASE OF [place] CORONARY ARTERY W/O ANG PCTRS (3) Hypercholesteremia Assessment/Plan: Cont Statin Code(s): E78.00 - PURE HYPERCHOLESTEROLEMIA, UNSPECIFIED (4) Bipolar 1 disorder, depressed Assessment/Plan: Stable on current meds and eCT monthly Code(s): F31.9 - BIPOLAR DISORDER, UNSPECIFIED (5) Pre-op evaluation Assessment/Plan: 68 year-old male with a PMH significant for HTN, HLD, CAD s/p stent, bipolar disorder, and major depressive disorder. He presents today for ECT. asymptomatic unlimited ET tolerating ECT well,Revised Cardiac Risk Index for Pre -Operative Risk: 0 points, 0.4% risk of major cardiac event,Patient has no Pulmonary, Neurological symptoms or problems with anesthesia this low procedure can be performed without any additional w/u. Code(s): Z01.818 - ENCOUNTER FOR OTHER PREPROCEDURAL EXAMINATION
[2018-08-09 08:41] VITALS: TEMP 97.9
[2018-08-09 08:48] VITALS: BP 114/65; PULSE 60
== END 2018-08-09 08:50 | disposition home or self-care (01) ==
LOC: FECT 05:44
PROVIDERS: ATTEND Psychiatry & Neurology Psychiatry
PROC: GZB4ZZZ Other Electroconvulsive Therapy (ICD-10-PCS; principal; 2018-08-09 07:00)
DX: F33.2 Major depressive disorder, recurrent severe without psychotic features (principal)
CPT/HCPCS: 90870; 94760

== ENCOUNTER 2018-09-09 05:41 | Day surgery (SDC) | payer OTHER, BC ==
[2018-09-09 07:17] VITALS: BMI 31.8
[2018-09-09] MEDS ORDERED: KETAMINE HCL 500 MG/10 ML VIAL ONE (07:58)
[2018-09-09 09:26] VITALS: TEMP 98
--- NOTE | 2018-09-09 09:31 | HP ---
CHIEF COMPLAINT: Major Depressive Disorder PCP: Miles Sutton Psych: Miles Dodge Cardiology: Miles Mayer HISTORY OF PRESENT ILLNESS: This is a 67 year-old male with a PMH significant for HTN, HLD, CAD s/p stent, bipolar disorder, and major depressive disorder. He has been undergoing ECT since 2016. He presents today for ECT. Recent events: * Does not know last time lithium level was checked; will follow up with Dr. Salomon * On monthly schedule for ECT Allergies Penicillins Allergy (Severe, Verified 09/09/18 07:10) Hives HOME MEDICATIONS: Home Medications Medication Instructions Recorded Aspirin [ASA -] 81 mg PO HS 04/13/16 Doxazosin Mesylate [Cardura Xl] 8 mg PO HS 04/13/16 Lamotrigine [Lamictal] 200 mg PO HS 04/13/16 Atorvastatin Ca [Lipitor] 80 mg PO HS 04/21/16 [place] Carbonate [Eskalith -] 300 mg PO HS 06/15/16 Cholecalciferol (Vitamin D3) 1,000 unit PO HS 11/22/17 [Vitamin D3] Multivit-Mins/Iron/Folic/Lycop 1 each PO DAILY 11/22/17 [Centrum Men's Tablet] Dextroamphetamine/Amphetamine 20 mg PO DAILY 11/29/17 [Adderall 10 mg Tablet] clonazePAM [Klonopin -] 0.5 mg PO HS 01/25/18 Amlodipine Besylate [Norvasc -] 5 mg PO DAILY 02/15/18 Venlafaxine HCl ER [Effexor Xr -] 300 mg PO DAILY 05/17/18 REVIEW OF SYSTEMS CONSTITUTIONAL: Absent: fever, chills, diaphoresis, generalized weakness, malaise, loss of appetite, weight change HEENT: Absent: rhinorrhea, nasal congestion, throat pain, throat swelling, difficulty swallowing, mouth swelling, ear pain, eye pain, visual changes CARDIOVASCULAR: Absent: chest pain, syncope, palpitations, irregular heart rate, lightheadedness , peripheral edema RESPIRATORY: Absent: cough, shortness of breath, dyspnea with exertion, orthopnea, wheezing, stridor, hemoptysis GASTROINTESTINAL: Absent: abdominal pain, abdominal distension, nausea, vomiting, diarrhea, constipation, melena, hematochezia GENITOURINARY: Absent: dysuria, frequency, urgency, hesitancy, hematuria, flank pain, genital pain MUSCULOSKELETAL: Absent: myalgia, arthralgia, joint swelling, back pain, neck pain SKIN: Absent: rash, itching, pallor HEMATOLOGIC/IMMUNOLOGIC: Absent: easy bleeding, easy bruising, lymphadenopathy, frequent infections ENDOCRINE: Absent: unexplained weight gain, unexplained weight loss, heat intolerance, cold intolerance NEUROLOGIC: Absent: headache, focal weakness or paresthesias, dizziness, unsteady gait, seizure, mental status changes, bladder or bowel incontinence PHYSICAL EXAMINATION Vital Signs - 24 hr 09/09/18 09/09/18 09/09/18 07:14 08:45 08:50 Temperature 98.8 F Pulse Rate 58 L 57 L 59 L Respiratory 16 16 18 Rate Blood Pressure 143/77 136/68 128/75 O2 Sat by Pulse 96 97 98 Oximetry (%) 09/09/18 09/09/18 09/09/18 08:55 09:00 09:05 Temperature 98 F Pulse Rate 58 L 59 L 54 L Respiratory 20 15 18 Rate Blood Pressure 135/70 128/72 107/63 O2 Sat by Pulse 98 94 L 95 Oximetry (%) 09/09/18 09:13 Temperature Pulse Rate 59 L Respiratory 15 Rate Blood Pressure 128/70 O2 Sat by Pulse Oximetry (%) GENERAL: Awake, alert, and fully oriented, in no acute distress. HEAD: Normal with no signs of trauma. EYES: Pupils equal, round and reactive to light, sclera anicteric, conjunctiva clear. LUNGS: Breath sounds equal, clear to auscultation bilaterally. No wheezes, and no crackles. No accessory muscle use. HEART: Regular rate and rhythm, normal S1 and S2 ABDOMEN: Soft, nontender, not distended MUSCULOSKELETAL: Normal range of motion at all joints. No bony deformities or tenderness. No CVA tenderness. UPPER EXTREMITIES: 2+ pulses, warm, well-perfused. No cyanosis. No clubbing. No peripheral edema. LOWER EXTREMITIES: 2+ pulses, warm, well-perfused. No calf tenderness. No peripheral edema. NEUROLOGICAL: Cranial nerves II-XII intact. Normal speech. ASSESSMENT/PLAN: This is a 67 year-old male with a PMH significant for HTN, HLD, CAD s/p stent, bipolar disorder, and major depressive disorder. He presents today for ECT. Cardiac --no cardiac history --Revised Cardiac Risk Index for Pre-Operative Risk: 0 points, 0.4% risk of major cardiac event Pulmonary --no pulmonary history Neurological --no neurological or neurosurgical history; no history of trauma Anesthesia --no reported problems with anesthesia ECT is a low risk procedure. The relative benefits of the planned procedure outweigh the relative risks for this patient at this time. Visit type - Emergency Visit Emergency Visit: No - New Patient This patient is new to me today: Yes Date on this admission: 09/09/18 - Critical Care Critical Care patient: No
[2018-09-09 09:55] VITALS: BP 123/72; PULSE 58
== END 2018-09-09 10:00 | disposition home or self-care (01) ==
LOC: FECT 05:41
PROVIDERS: ATTEND Psychiatry & Neurology Psychiatry
PROC: GZB4ZZZ Other Electroconvulsive Therapy (ICD-10-PCS; principal; 2018-09-09 07:00)
DX: F33.2 Major depressive disorder, recurrent severe without psychotic features (principal)
CPT/HCPCS: 90870; 94760

== ENCOUNTER 2018-10-14 05:47 | Day surgery (SDC) | payer OTHER, BC ==
[2018-10-14 07:15] VITALS: BMI 31.6
[2018-10-14 10:00] VITALS: TEMP 98.2
[2018-10-14 10:04] VITALS: BP 121/61; PULSE 60
--- NOTE | 2018-10-14 10:32 | HP ---
CHIEF COMPLAINT: Major depressive disorder PCP: Primary Psychiatrist: HISTORY OF PRESENT ILLNESS: This is a 67 year-old male with a PMH significant for HTN, HLD, CAD s/p stent, bipolar disorder, and major depressive disorder. He has been undergoing ECT since 2016. He presents today for ECT. PCP: Miles Sutton Psych: Miles Dodge Cardiology: Miles Mayer Recent events: * None reported Recent Travel: No PAST MEDICAL HISTORY: Hypertension Hyperlipidemia Coronary artery disease Bipolar disorder Major depressive disorder PAST SURGICAL HISTORY: Coronary stent 2014 Left hip replacement 2004 Social History: Smoking:No Alcohol:No Drugs:No Allergies Penicillins Allergy (Severe, Verified 10/14/18 07:04) Hives Home Medications Medication Instructions Recorded Aspirin [ASA -] 81 mg PO HS 04/13/16 Doxazosin Mesylate [Cardura Xl] 8 mg PO HS 04/13/16 Lamotrigine [Lamictal] 200 mg PO HS 04/13/16 Atorvastatin Ca [Lipitor] 80 mg PO HS 04/21/16 [place] Carbonate [Eskalith -] 300 mg PO HS 06/15/16 Cholecalciferol (Vitamin D3) 1,000 unit PO HS 11/22/17 [Vitamin D3] Multivit-Mins/Iron/Folic/Lycop 1 each PO DAILY 11/22/17 [Centrum Men's Tablet] clonazePAM [Klonopin -] 0.5 mg PO HS 01/25/18 Amlodipine Besylate [Norvasc -] 5 mg PO DAILY 02/15/18 Venlafaxine HCl ER [Effexor Xr -] 450 mg PO DAILY 05/17/18 REVIEW OF SYSTEMS CONSTITUTIONAL: Absent: fever, chills, diaphoresis, generalized weakness, malaise, loss of appetite, weight change HEENT: Absent: rhinorrhea, nasal congestion, throat pain, throat swelling, difficulty swallowing, mouth swelling, ear pain, eye pain, visual changes CARDIOVASCULAR: Absent: chest pain, syncope, palpitations, irregular heart rate, lightheadedness , peripheral edema RESPIRATORY: Absent: cough, shortness of breath, dyspnea with exertion, orthopnea, wheezing, stridor, hemoptysis GASTROINTESTINAL: Absent: abdominal pain, abdominal distension, nausea, vomiting, diarrhea, constipation, melena, hematochezia GENITOURINARY: Absent: dysuria, frequency, urgency, hesitancy, hematuria, flank pain, genital pain MUSCULOSKELETAL: Absent: myalgia, arthralgia, joint swelling, back pain, neck pain SKIN: Absent: rash, itching, pallor HEMATOLOGIC/IMMUNOLOGIC: Absent: easy bleeding, easy bruising, lymphadenopathy, frequent infections ENDOCRINE: Absent: unexplained weight gain, unexplained weight loss, heat intolerance, cold intolerance NEUROLOGIC: Absent: headache, focal weakness or paresthesias, dizziness, unsteady gait, seizure, mental status changes, bladder or bowel incontinence PHYSICAL EXAMINATION Vital Signs - 24 hr 10/14/18 10/14/18 10/14/18 07:00 08:45 08:50 Temperature 98.4 F Pulse Rate 56 L 52 L 59 L Respiratory 20 15 17 Rate Blood Pressure 131/79 124/66 106/68 O2 Sat by Pulse 97 95 94 L Oximetry (%) 10/14/18 10/14/18 10/14/18 08:55 09:00 09:10 Temperature 98.2 F Pulse Rate 59 L 60 57 L Respiratory 17 20 18 Rate Blood Pressure 106/68 126/58 L 116/64 O2 Sat by Pulse 94 L 98 97 Oximetry (%) 10/14/18 10/14/18 09:40 09:45 Temperature 98.2 F 98.2 F Pulse Rate 60 60 Respiratory 18 18 Rate Blood Pressure 121/61 121/61 O2 Sat by Pulse 97 Oximetry (%) GENERAL: Awake, alert, and fully oriented, in no acute distress. HEAD: Normal with no signs of trauma. EYES: Pupils equal, round and reactive to light, sclera anicteric, conjunctiva clear. LUNGS: Breath sounds equal, clear to auscultation bilaterally. No wheezes, and no crackles. No accessory muscle use. HEART: Regular rate and rhythm, normal S1 and S2 ABDOMEN: Soft, nontender, not distended MUSCULOSKELETAL: Normal range of motion at all joints. No bony deformities or tenderness. No CVA tenderness. UPPER EXTREMITIES: 2+ pulses, warm, well-perfused. No cyanosis. No clubbing. No peripheral edema. LOWER EXTREMITIES: 2+ pulses, warm, well-perfused. No calf tenderness. No peripheral edema. NEUROLOGICAL: Cranial nerves II-XII intact. Normal speech. ASSESSMENT/PLAN: This is a 67 year-old male with a PMH significant for HTN, HLD, CAD s/p stent, bipolar disorder, and major depressive disorder. He presents today for ECT. Cardiac --no cardiac history --Revised Cardiac Risk Index for Pre-Operative Risk: 0 points, 0.4% risk of major cardiac event Pulmonary --no pulmonary history Neurological --no neurological or neurosurgical history; no history of trauma Anesthesia --no reported problems with anesthesia ECT is a low risk procedure. The relative benefits of the planned procedure outweigh the relative risks for this patient at this time. Visit type - Emergency Visit Emergency Visit: No - New Patient This patient is new to me today: Yes Date on this admission: 10/14/18 - Critical Care Critical Care patient: No
== END 2018-10-14 09:45 | disposition home or self-care (01) ==
LOC: FECT 05:47
PROVIDERS: ATTEND Psychiatry & Neurology Psychiatry
PROC: GZB4ZZZ Other Electroconvulsive Therapy (ICD-10-PCS; principal; 2018-10-14 07:45)
DX: F33.2 Major depressive disorder, recurrent severe without psychotic features (principal)
CPT/HCPCS: 90870; 94760